=== PATIENT | female | born 1945 | race Caucasian/White ===

== ENCOUNTER 2023-03-11 08:43 | Emergency (ER) | payer OTHER ==
--- OUTSIDE RECORDS SUMMARY | 2023-03-11 08:49 | XMS REPORT | Continuity of Care Document ---
:1945 Author Organization [facility] t Address [address] [facility] [address] [place] [address] Care Team Providers Name Role Phone DR MIESHA GARCIA Primary Care Physician Miesha Garcia Attending Clinician Unavailable [email or web address]_S Attending Clinician Unavailable Namrata Ramirez MA Attending Clinician Unavailable Haylie Gresham MD Attending Clinician Hema Gray MD Attending Clinician Danie Mahan MD Attending Clinician Cy RAMIREZ, Radha Pemberton Attending Clinician [phone] Jesu FRANK, Josselyn Attending Clinician Unavailable Dewayne [facility], Chasidy Attending Clinician Unavailable Merlene Frausto MD Attending Clinician Tanisha [facility] Attending Clinician Unavailable Miranda Hammonds RN Attending Clinician Unavailable Nolan Solis MD Attending Clinician Althea Farr NP Attending Clinician [phone] Marika Dorsey RN Attending Clinician Unavailable Shyla Lizama MA Attending Clinician Unavailable DR ROSALBA HAWKINS Attending Clinician Unavailable MAJO MOLINA Attending Clinician Unavailable CARL CHRIS Attending Clinician Unavailable DR BHASKAR COON Attending Clinician Unavailable JOSEFINA ZHAO Attending Clinician Unavailable DR MIESHA GARCIA Attending Clinician Unavailable BARON ELIZALDE Attending Clinician Unavailable DR KANDICE COLLINS Attending Clinician Unavailable MARTHA REYES Attending Clinician Unavailable Miesha Garcia Admitting Clinician Unavailable GC_[email or web address]_Kadiyala_S Admitting Clinician Unavailable HEMA GRAY Admitting Clinician Unavailable DR ROSALBA HAWKINS Admitting Clinician Unavailable MAJO MOLINA Admitting Clinician Unavailable MONTANA NOEL Admitting Clinician Unavailable DR BHASKAR COON Admitting Clinician Unavailable JOSEFINA ZHAO Admitting Clinician Unavailable DR MIESHA GARCIA Admitting Clinician Unavailable BARON ELIZALDE Admitting Clinician Unavailable DR KANDICE COLLINS Admitting Clinician Unavailable MARTHA REYES Admitting Clinician Unavailable Payers Payer Name Policy Type Policy Number Effective Date Expiration Date Lorraine gamez [facility] [id number] 2014 (MEDICARE 00:00:00 REPLACEMENT/ADVANTA GE - PPO) [id number] 1959 00:00:00 [facility] [id number] 2020 00:00:00 Problems Condition Condition Condition Status Onset Resolution Last Treating Co mments Source Name Details Category Date Date Treatment Clinician Date Cerebrovas Cerebrovas Disease Active M ethodi cular cular 11-02 st accident accident 00:00: Hospit a 00 l Irritable Irritable Disease Active Met [facility]odi colon colon 11-02 st 00:00: Hospita 00 l Nonrheumat Nonrheumat Disease Active Overview : Methodi ic aortic ic aortic 11-02 Formattin s t valve valve 00:00: g of this Hospita insufficie insufficie 00 note l ncy ncy might be different from the original. Noted on TTE 07/2022. Mild. Following w/ cardiolog y for annual TTE Syncope Syncope Disease Active 2021-08 Last Methodi 2-[address] 00:00: t & Plan: Hospita 00 Formattin l g of this note might be different from the original. No cardiac etiology is evident at this time. No arrhythmi as noted on Holter monitor, LV function is also noted to be normal. There is no evidence of coronary artery disease as noted on CAC scan.I will defer neurologi amilcar work-up to her primary physician . Primary Primary Disease Active 2021-08 Last Methodi hypertensi hypertensi 2-[address] on on 00:00: t & Plan: Hospita 00 Formattin l g of this note might be different from the original. Hypertens ion is well controlle d, patient to continue current Rx at this time. 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 00:00: Hosp avani 00 l Hypertensi Hypertensi Problem Active [facility] ve ve [facility] disorder disorder Memori a l (LUF/LI V/SA) Allergies, Adverse Reactions, Alerts Allergy Allergy Status Severity Reaction(s) Onset Inactive Treating Comm ents Source Name Type Date Date Clinician Corticos Propensi Active Other (See 2021-08 Due to Me thodi teroids ty to Comments) 0-[address] (Glucoco adverse 00:00: insuffici Hosp avani rticoids reaction 00 ency l ) s to drug Lamotrig Propensi Active Rash Method i ine ty to 03-07 st adverse 00:00: Hospita reaction 00 l s to drug NO KNOWN Allergy Active [facility] Family History Family Member Diagnosis Comments Start Date Stop Date Source Natural father Lung cancer [facility] Natural father Skin cancer [facility] Natural father Lung cancer [facility] Social History Social Habit Start Date Stop Date Quantity Comments Source Gender identity 2022-10-25 Identifies as Method ist 11:13:49 female gender Hospital (finding) Sexual orientation 2022-10-25 Heterosexual Meth odist 11:13:49 (finding) Hospital History of Social 2022-11-02 2022-11-[address] function 00:00:00 00:00:00 Hospital Tobacco use and 2022-06-15 2022-06-15 Smokeless tobacco Me thodist exposure 00:00:00 00:00:00 non-user Hospital Alcohol intake 2021-05-26 2021-05-26 Ex-drinker [facility] Cate es 00:00:00 00:00:00 (finding) [facility] Tobacco Comment 2021-05-13 2021-05-13 quit 2016 [facility] ammons 00:00:00 00:00:00 [facility] History of tobacco 2007-08-14 Current smoker Me thodist use 00:00:00 [facility] Sex Assigned At [birth year] [facility] 00:00:00 00:00:00 [facility] Smoking Status Start Date Stop Date Source Never smoker [facility] Mem orial (LUF/ADINA/SA) Ex-smoker 2022-06-15 00:00:00 2022-06-15 00:00:00 [facility] Medications Ordered Filled Start Stop Current Ordering Indication Dosage Frequency Signature Comments Components Source Medication Medication Date Date Medication? Clinician (SIG) Name Name aspirin Yes 81mg QD Take 1 Methodi (ECOTRIN) 3-20 tablet (81 st 81 MG 11:01: mg total) Hospita enteric 13 by mouth l coated daily. tablet multivitami Yes 1{tbl} QD Take 1 Me thodi n tablet 3-[address] 11:01: mouth Hospita 13 daily. l clobetasoL 0 Yes [id number] Apply Methodi (TEMOVATE) 3-[id number] 0.05 % 00:00: 3W 3 (three) Hospit a ointment 00 times a l week. clobetasoL 2021-08- No QD Apply Metho di (TEMOVATE) 2-12 03-[address] 0.05 % 00:00: 00:00 nightly. Hospit a ointment 00 :00 l lisinopriL 2021-08 No [id number] 5mg QD Take 1 Methodi (PRINIVIL) 2- 12-06 tablet (5 st 5 mg tablet 00:00: 05:59 mg total) Hospita 00 :00 by mouth l daily. acetaminoph 2021-08 [place] [id number] 1{tbl} Q4H Take 1-2 Methodi en-codeine 1-03 11-[address] (TYLENOL 00:00: 00:00 mouth Hospita WITH 00 :00 every 4 l CODEINE #3) (four) 300-30 mg hours as per tablet needed for moderate pain or severe pain .acute pain. cefdinir 2021-08 No 300mg Q.5D Take 1 Metho di (OMNICEF) 0-24 11-[address] 300 MG 00:00: 00:00 (300 mg Hospita capsule 00 :00 total) by l mouth 2 (two) times a day. Taking for recent UTI x 6 days. Last dose will be 06/15/22 zonisamide Yes TAKE 1 Metho di (ZONEGRAN) 7-[address] 100 MG 00:00: MOUTH IN Hospita capsule 00 THE l MORNING AND 2 CAPSULES AT BEDTIME EACH DAY traZODone Yes TAKE 1 TO Met hodi (DESYREL) 7-[address] 150 MG 00:00: BY MOUTH Hospita tablet 00 ONCE DAILY l AT BEDTIME desvenlafax 0 Yes 100mg QD Take 1 Met hodi ine 7-[address] (PRISTIQ) 00:00: (100 mg Hospi ta 100 MG 24 00 total) by l hr tablet mouth every morning. buPROPion 2022-0 Yes 300mg QD Take 1 Metho di XL 7-[address] (WELLBUTRIN 00:00: (300 mg Hos mirella XL) 300 MG 00 total) by l 24 hr mouth tablet every morning. buPROPion 2020-08 Yes 300mg QD Take [address] (WELLBUTRIN 0-13 mg by [facility] XL) 300 MG 10:57: mouth Medica l 24 hr 43 daily. Center tablet lisinopriL 2020-08 Yes 10mg QD Take [address] (PRINIVIL,Z 0-13 by mouth Luke s ESTRIL) 10 10:57: daily. Medic al MG tablet 43 Center rosuvastati 2020-08 Yes 10mg QD Take [address] n (CRESTOR) 0-13 by mouth Luke s 10 MG 10:57: daily. Medical tablet 43 Center desvenlafax 2020-08 Yes 100mg QD Take [address] ine 0-13 mg by [facility]ukes succinate 10:57: mouth Medical (PRISTIQ) 43 daily. Center 100 MG 24 hr tablet clonazePAM 2020-08 Yes 1mg Take [address] (KlonoPIN) 0-13 by mouth [facility] 1 MG tablet 10:57: as needed M edical 43 for Center Anxiety. temazepam 2020-08 Yes 30mg Take [address] (RESTORIL) 0-13 by mouth [facility] 30 mg 10:57: every Medical capsule 43 night as Center needed for Sleep. 24 HR 24 HR Yes 300mg [facility] bupropion bupropion [facility]ukes hydrochlori hydrochlori M emoria de 300 MG de 300 MG l Extended Extended (LUF/LI Release Release V/SA) Oral Tablet Oral Tablet atorvastati atorvastati Yes 20mg 1xD [facility] n 20 MG n 20 MG [facility] Oral Tablet Oral Tablet M emoria l (LUF/LI V/SA) benazepril benazepril Yes 10mg 1xD [facility] hydrochlori hydrochlori L ukes de 10 MG de 10 MG Memoria Oral Tablet Oral Tablet l (LUF/LI V/SA) Pristiq Pristiq Yes 100mg [address]xD [facility] Extended Extended [facility]ukes Release 24 Release 24 Mem oria hour Tablet hour Tablet l (LUF/LI V/SA) temazepam temazepam Yes 30mg [facility]I S t 30 MG Oral 30 MG Oral Cate es Capsule Capsule Memoria l (LUF/LI V/SA) Zanaflex Zanaflex Yes [address] [facility] Memoria l (LUF/LI V/SA) 24 HR 24 HR Yes 300mg orally [facility] bupropion bupropion every Luke s hydrochlori hydrochlori morning Memoria de 300 MG de 300 MG l Extended Extended (LUF/LI Release Release V/SA) Oral Tablet Oral Tablet atorvastati atorvastati Yes 20mg 1xD orally [facility] n 20 MG n 20 MG daily [facility]ukes Oral Tablet Oral Tablet M emoria l (LUF/LI V/SA) benazepril benazepril Yes 10mg 1xD orally [facility] hydrochlori hydrochlori daily [facility] de 10 MG de 10 MG Memoria Oral Tablet Oral Tablet l (LUF/LI V/SA) Pristiq Pristiq Yes 100mg 1xD orally [facility] Extended Extended daily [facility] Release 24 Release 24 Mem oria hour Tablet hour Tablet l (LUF/LI V/SA) temazepam temazepam Yes 30mg orally [facility] 30 MG Oral 30 MG Oral every day [facility]ukes Capsule Capsule at bedtime Mem oria as needed. l (LUF/LI V/SA) Zanaflex Zanaflex Yes 2mg orally Use C [facility] as [facility] Directed Memoria as needed. l (LUF/LI V/SA) Immunizations Ordered Immunization Filled Immunization Date Status Commen ts Source Name Name FLUZONE HIGH-DOSE PF 2022-05-19 Completed Meth odist 00:00:00 [facility] PFIZER COVID-19 MRNA 2021-07-15 Completed Meth odist VACCINATION 00:00:00 [facility] FLUZONE HIGH-DOSE PF 2021-05-25 Completed Meth odist 00:00:00 [facility] COVID-19 MRNA 2020-12-22 Completed Meth odist VACCINATION 00:00:00 [facility] COVID-19 MRNA 2020-12-06 Completed Meth odist VACCINATION 00:00:00 [facility] influenza virus influenza virus 2016-08-[address] [facility] vaccine, NOS vaccine, NOS 00:00:00 [facility] (LUF/ADINA/SA) pneumococcal pneumococcal 2016-08-[address] Cate es vaccine, NOS vaccine, NOS 00:00:00 [facility] (LUF/ADINA/SA) Influenza, 2016-08-09 Completed [facility] 00:[facility]00 Hospital Pneumococcal, 2016-08-09 Completed [facility] 00:00:00 Hospital Vital Signs Vital Name Observation Time Observation Value Comments Source Height 2022-01-22 11:10:00 160.02 CM Weight 2022-01-22 11:10:00 56.81 KG Height 2021-06-08 11:05:00 160.02 CM Weight 2021-06-08 11:05:00 67.13 KG HEIGHT 2021-05-26 11:05:00 160 cm WEIGHT 2021-05-26 11:05:00 65.772 kg Systolic blood 2022-10-31 15:59:00 142 mm[Hg] [facility] pressure Diastolic blood 2022-10-31 15:59:00 79 mm[Hg] [facility] pressure Heart rate 2022-10-31 15:59:00 87 /min [facility] Body height 2022-10-31 15:59:00 160 cm [facility] Body weight 2022-10-31 15:59:00 60.328 kg [facility] BMI 2022-10-31 15:59:00 23.56 kg/m2 [facility] Body temperature 2022-10-27 16:30:00 36.28 Shraddha [facility] Respiratory rate 2022-10-27 16:30:00 17 /min [facility] Oxygen saturation in 2022-10-27 16:30:00 98 /min [facility] Arterial blood by Pulse oximetry Body Temperature 2022-01-22 12:58:00 98.2 [degF] [facility] (LUF/ADINA/SA) Heart Rate 2022-01-22 12:58:00 72 /min [facility] (LUF/ADINA/SA) Pulse Rate 2022-01-22 12:58:00 72 /min [facility] (F/ADINA/SA) Respiratory Rate 2022-01-22 12:58:00 20 /min [facility] (F/ADINA/SA) O2% BldC Oximetry 2022-01-22 12:58:00 99 % [facility] (F/ADINA/SA) BP Systolic 2022-01-22 12:58:00 129 mm[Hg] [facility] (LUF/ADINA/SA) BP Diastolic 2022-01-22 12:58:00 61 mm[Hg] [facility] (LUF/ADINA/SA) Height 2022-01-22 11:10:00 63 [in_i] [facility] (LUF/ADINA/SA) Weight 2022-01-22 11:10:00 56.81 kg [facility] (F/ADINA/SA) BMI (Body Mass 2022-01-22 11:10:00 22.1 kg/m2 [facility] Index) [facility] (LUF/ADINA/SA) Body Temperature 2021-06-11 16:42:00 97.1 [degF] [facility] (F/ADINA/SA) Pulse Rate 2021-06-11 16:04:00 67 /min [facility] (F/ADINA/SA) Respiratory Rate 2021-06-11 16:04:00 27 /min [facility] (F/ADINA/SA) O2% BldC Oximetry 2021-06-11 16:04:00 95 % [facility] (F/ADINA/SA) BP Systolic 2021-06-11 16:04:00 153 mm[Hg] [facility] (F/ADINA/SA) BP Diastolic 2021-06-11 16:04:00 54 mm[Hg] [facility] (F/ADINA/SA) Height 2021-06-08 11:05:00 63 [in_i] [facility] (F/ADINA/SA) Weight 2021-06-08 11:05:00 148 [lb_av] [facility] (LUF/ADINA/SA) BMI (Body Mass 2021-06-08 11:05:00 26.2 kg/m2 [facility] Index) [facility] (F/ADINA/SA) Procedures Procedure Date / Time Performing Clinician Source Performed FERRITIN LEVEL 2022-10-25 13:05:00 Rad[facility] Ben[facility] [place] CBC WITH PLATELET AND 2022-10-25 13:05:00 Radha Benoit [facility] [place] CBC WITH PLATELET AND 2022-10-05 17:59:00 [facility] DIFFERENTIAL FERRITIN LEVEL 2022-10-05 17:59:00 [facility] CT CARDIAC CALCIUM SCORE 2022-08-23 22:27:43 [facility] US CAROTID DUPLEX 2022-08-10 20:53:00 [facility] BILATERAL TTE COMPLETE, WO CONTRAST, 2022-08-10 20:49:00 [facility] W DOPPLER ([id number]) CBC WITH PLATELET AND 2022-08-03 17:51:00 [facility] DIFFERENTIAL CBC WITH PLATELET AND 2022-07-13 18:11:00 [facility] DIFFERENTIAL CBC WITH PLATELET AND 2022-06-21 18:09:00 [facility] DIFFERENTIAL FERRITIN LEVEL 2022-06-21 18:09:00 [facility] SURGICAL PATHOLOGY REQUEST 2022-06-16 17:05:00 [facility] [place] AN ELECTIVE 2022-06-16 16:42:00 [facility] BIOPSY, VULVA OR PERINEUM 2022-06-16 16:36:00 [facility] ABO AND RH CONFIRMATION BY 2022-06-16 15:26:00 [facility] PROTOCOL XR CHEST 2 VW 2022-06-15 14:32:50 [facility] jarrod COMPREHENSIVE METABOLIC 2022-06-15 14:16:00 [facility] PANEL TYPE AND SCREEN 2022-06-15 14:16:00 Malik Hampton PARTIAL THROMBOPLASTIN 2022-06-15 14:16:00 Malik Hampton [facility] Hospital TIME (PTT) Matthew PROTHROMBIN TIME WITH INR 2022-06-15 14:16:00 Malik Hampton [facility] Christophdarrius HEMOGLOBIN A1C 2022-06-15 14:16:00 Malik Hampton CBC WITH PLATELET AND 2022-06-15 14:16:00 [facility] DIFFERENTIAL Christopher ESTIMATED GFR 2022-06-15 14:16:00 [facility] spital ECG PRE/POST OP 2022-06-15 13:49:57 Malik Hampton [facility] spital Christopher TSH WITH REFLEX TO FREE T4 2022-05-31 19:39:00 [facility] SURGICAL PATHOLOGY REQUEST 2022-05-30 13:10:00 [facility] FERRITIN LEVEL 2022-05-24 16:59:00 [facility] spital TOTAL IRON BINDING 2022-05-24 16:59:00 [facility] CAPACITY VITAMIN B12 AND FOLATE 2022-05-24 16:59:00 [facility] CREATININE LEVEL 2022-05-24 16:57:00 [facility] ospital CBC WITH PLATELET AND 2022-05-19 19:34:00 [facility] DIFFERENTIAL COMPREHENSIVE METABOLIC 2022-05-19 19:34:00 [facility] PANEL HEMORRHOIDECTOMY 2021-06-11 14:10:00 [facility] ([facility]/ADINA/SA) COLONOSCOPY 2021-06-11 13:36:00 [facility] ([facility]/ADINA/SA) [id number] COLONOSCOPY W/BIOPSY 2021-06-11 00:00:00 [facility] SINGLE/MULTIP [facility] ([facility]/ADINA/SA) [id number] HEMORRHOIDECTOMY INT 2021-06-11 00:00:00 [facility] & XTRNL 2/> C [facility] ([facility]/ADINA/SA) Hysterectomy [facility] ([facility]/ADINA/SA) Appendectomy [facility] ([facility]/ADINA/SA) Tonsillectomy and [facility] adenoidectomy [facility] ([facility]/ADINA/SA) Lumpectomy of left breast [facility] ([facility]/ADINA/SA) Excision of mass [facility] ([facility]/ADINA/SA) Bilateral extraction of [facility] uk cataracts [facility] ([facility]/SA) EXCISION OF ALFARO'S [facility] s NEUROMA [facility] ([facility]/SA) Cosmetic surgery [facility] ([facility]/) Plan of Care Planned Activity Planned Date Details Comments Source Future Scheduled 2023-04-14 Influenza Vaccine (#1) [facility] 00:00:00 [code = Influenza Medical Ce nter Vaccine (#1)] Future Scheduled 2023-01-30 65+ PNEUMOCOCCAL [facility] Test 20:07:49 VACCINE (1 - PCV) [code = 65+ PNEUMOCOCCAL VACCINE (1 - PCV)] Future Scheduled 2023-01-30 Hepatitis C screening [facility] Hospital Test 20:07:49 (procedure) [code = [id number]] Future Scheduled 2023-01-30 SHINGLES VACCINES (1 Met [facility] Hospital Test 20:07:49 of 2) [code = SHINGLES VACCINES (1 of 2)] Future Scheduled 2023-01-30 COVID-19 VACCINE (4 - [facility] Hospital Test 20:07:49 Pfizer series) [code = COVID-19 VACCINE (4 - Pfizer series)] Future Scheduled 2023-01-30 INFLUENZA VACCINE Method ist Hospital Test 20:07:49 [code = INFLUENZA VACCINE] Future Scheduled 2022-08-[address] [facility] Test 00:00:00 (12+) [code = Medical Center DEPRESSION SCREENING (12+)] Future Scheduled 2022-08-14 FALLS RISK SCREENING [facility] Test 00:00:00 [code = FALLS RISK Medical C enter SCREENING] Future Scheduled 2008 PNEUMOCOCCAL 65+ YRS [facility] Test 00:00:00 (1 - PCV) [code = Medical Ce nter PNEUMOCOCCAL 65+ YRS (1 - PCV)] Future Scheduled 1993 SHINGLES VACCINES ([address] [facility] Test 00:00:00 of 2) [code = SHINGLES Medic al Center VACCINES (1 of 2)] Future Scheduled 1962 DTAP/TDAP/TD VACCINES [facility] Test 00:00:00 (1 - Tdap) [code = Medical C enter DTAP/TDAP/TD VACCINES (1 - Tdap)] Future Scheduled 1961 HEPATITIS C SCREENING [facility] Test 00:00:00 [code = HEPATITIS C Medical Center SCREENING] Future Scheduled [address] [facility] Test 00:00:00 Counseling and Medical Cente r Screening (12+) [code = Tobacco Cessation Counseling and Screening (12+)] Future Scheduled 1943 COVID-19 VACCINE (#1) [facility] Test 00:00:00 [code = COVID-[address] VACCINE (#1)] Future Scheduled 1945 DXA SCAN [code = DXA [facility] Test 00:00:00 SCAN] Medical Center Encounters Start End Encounter Admission Attending Care Care Encounter Source Date/Time Date/Time Type Type Clinicians Facility Department ID 2021-09-08 [facility] [id number] Common 14:09:52 Miesha 1108 [facility] 2021-09-08 [facility] [id number] Common 13:49:03 Miesha 0914 [facility] 2021-09-08 [facility] [id number] Common 13:14:16 Miesha 0614 [facility] 2023-03-07 2023-03-07 Outpatient GC_GCBZW_Ka PRIV PRIV [id number] [facility] 00:00:00 00:00:00 diyala_S [id number] Medic al 2023-02-23 2023-02-23 Outpatient GC_GCBZW_Ka PRIV PRIV [id number] [facility] 00:00:00 00:00:00 diyala_S [id number] Medic al 2023-01-16 2023-01-16 Travel 1.2.840.1 [id number] Methodi 00:00:00 00:00:[address] 3.430.2.7 0.2.7.3.698 Ho spita .3.674622 084.8 l .8 2022-11-17 2022-11-17 Namrata Cage 1.2.840.1 [id number] Methodi 00:00:00 00:00:[address] 3.430.2.7 Hospit a .3.239028 l .8 2022-11-17 2022-11-17 Telephone Mp, 1.2.840.1 [id number] Methodi 00:00:00 00:00:[address] 3.430.2.7 Hospit a .3.514929 l .8 2022-10-31 2022-10-31 Office Abbey, 1.2.840.1 [id number] Methodi 11:00:00 11:26:08 Visit Hema 92665.1.[address] 3.430.2.7 Hospit a .3.466377 l .8 2022-10-31 2022-10-31 Outpatient [facility] [id number] [place] 00:00:00 00:00:[address] 2022-10-31 2022-10-31 Travel 1.2.840.1 [id number] Methodi 00:00:00 00:00:[address] 3.430.2.7 0.2.7.3.698 Ho spita .3.351580 084.8 l .8 2022-10-27 2022-10-27 Office Danie Mahan 1.2.840.1 [id number] Methodi 11:00:00 12:03:05 Visit Radha Benoit 29760.1.[address] 3.430.2.7 Hospit a .3.987963 l .8 2022-10-27 2022-10-27 Infusion Leobardo, 1.2.840.1 [id number] Methodi 11:30:00 11:47:57 Dan[address] Vengu [address]46.1.[address] 3.430.2.7 Hospit a .3.439044 l .8 2022-10-27 2022-10-27 Outpatient [facility] [id number] [place] 00:00:00 00:00:00 DANIE [address] 2022-10-27 2022-10-27 Outpatient [facility] [id number] [place] 00:00:00 00:00:00 DANIE [address] 2022-10-27 2022-10-27 Travel 1.2.840.1 [id number] [id number] Methodi 00:00:00 00:00:[address] 3.430.2.7 0.2.7.3.698 Ho spita .3.266865 084.8 l .8 2022-10-25 2022-10-25 Lab [facility] Health [facility], 1.2.840.1 [id number] 2099 [id number] Methodi 08:10:00 08:15:00 [address]76.1.[address] 3.430.2.7 Hospit a .3.620845 l .8 2022-10-25 2022-10-25 Outpatient [facility] 43623 23661 [place] 00:00:00 00:00:00 DANIE [address] 2022-10-25 2022-10-25 Travel 1.2.840.1 1.2.383.867 8624 568891 Methodi 00:00:00 00:00:[address] 3.430.2.7 0.2.7.3.698 Ho spita .3.304930 084.8 l .8 2022-10-19 2022-10-19 Telephone [facility], 1.2.840.1 [id number] 29922 77281 Methodi 00:00:00 00:00:[address] 3.430.2.7 Hospit a .3.879819 l .8 2022-10-13 2022-10-13 Orders Jesu, 1.2.840.1 [id number] 8811 Methodi 00:00:00 00:00:00 Only Josselyn 78819.1.[address] 3.430.2.7 Hospit a .3.980268 l .8 2022-10-05 2022-10-05 Infusion Ramfranki, 1.2.840.1 [id number] 966 [id number] Methodi 12:00:00 12:16:22 [address]man 20873.[address] 3.430.2.7 Hospit a .3.590503 l .8 2022-10-05 2022-10-05 Outpatient [facility] 17335 24248 [place] 00:00:00 00:00:00 DANIE [address] 2022-10-05 2022-10-05 Travel 1.2.840.1 1.2.041.716 9603 806367 Methodi 00:00:00 00:00:[address] 3.430.2.7 0.2.7.3.698 Ho spita .3.954681 084.8 l .8 2022-09-07 2022-09-07 Patient Dewayne, 1.2.840.1 [id number] 6845 Methodi 00:00:00 00:00:00 Outreach Chasidy 54454.1.[address] 3.430.2.7 Hospit a .3.499733 l .8 2022-08-30 2022-08-30 Office Merlene Frausto 1.2.840.1 [id number] 337 [id number] Methodi 13:15:00 13:56:[address] 3.430.2.7 Hospit a .3.365248 l .8 2022-08-30 2022-08-30 Outpatient MERLENE FRAUSTO [facility] 2100 058692 [place] 00:00:00 00:00:[address] 2022-08-30 2022-08-30 Travel 1.2.840.1 1.2.633.479 9743 218169 Methodi 00:00:00 00:00:[address] 3.430.2.7 0.2.7.3.698 Ho spita .3.141069 084.8 l .8 2022-08-23 2022-08-23 [facility] Merlene Frausto 1.2.840.1 [id number] 21 [id number] Methodi 14:57:45 23:59:[address] 3.430.2.7 Hospit a .3.031664 l .8 2022-08-23 2022-08-23 Outpatient MERLENE FRAUSTO [facility] 2100 [id number] [place] 00:00:00 00:00:[address] 2022-08-23 2022-08-23 Travel 1.2.840.1 1.2.016.302 7447 164920 Methodi 00:00:00 00:00:[address] 3.430.2.7 0.2.7.3.698 Ho spita .3.745870 084.8 l .8 2022-08-10 2022-08-10 Infusion [facility], 1.2.840.1 [id number] 219 [id number] Methodi 12:00:00 13:53:[address] 79927.1.[address] 3.430.2.7 Hospit a .3.929855 l .8 2022-08-10 2022-08-10 Outpatient [facility] 58041 28247 [place] 00:00:00 00:00:00 DANIE [address] 2022-08-10 2022-08-10 Outpatient MERLENE FRAUSTO [facility] 2100 [id number] [place] 00:00:00 00:00:[address] 2022-08-10 2022-08-10 Outpatient MERLENE FRAUSTO [facility] 2100 [id number] [place] 00:00:00 00:00:[address] 2022-08-10 2022-08-10 Travel 1.2.840.1 1.2.610.232 7017 349955 Methodi 00:00:00 00:00:[address] 3.430.2.7 0.2.7.3.698 Ho spita .3.833603 084.8 l .8 2022-08-03 2022-08-03 Nurse Only Leobardo, 1.2.840.1 [id number] 2 [id number] Methodi 12:00:00 13:50:32 [address] Beckman 46103.1.[address] 3.430.2.7 Hospit a .3.890583 l .8 2022-08-03 2022-08-03 Outpatient LEOBARDO [facility] 03947 77700 [place] 00:00:00 00:00:00 DANIE [address] 2022-08-03 2022-08-03 Orders Tanisha, 1.2.840.1 [id number] 7378 Methodi 00:00:00 00:00:00 Only Lakisha 81342.1.[address] 3.430.2.7 Hospit a .3.727394 l .8 2022-08-03 2022-08-03 Travel 1.2.840.1 1.2.114.830 7240 710324 Methodi 00:00:00 00:00:[address] 3.430.2.7 0.2.7.3.698 Ho spita .3.827247 084.8 l .8 2022-07-25 2022-07-25 Office Abbey, 1.2.840.1 [id number] 056522 2433 Methodi 10:30:00 10:50:17 Visit Hema 69416.1.[address] 3.430.2.7 Hospit a .3.596837 l .8 2022-07-25 2022-07-25 [facility] [id number] 777 [place] 00:00:00 00:00:00 HEMA [address] 2022-07-25 2022-07-25 Travel 1.2.840.1 1.2.095.101 0123 166544 Methodi 00:00:00 00:00:[address] 3.430.2.7 0.2.7.3.698 Ho spita .3.381825 084.8 l .8 2022-07-18 2022-07-18 Office Haylie Gresham 1.2.840.1 [id number] 3 [id number] Methodi 12:00:00 12:46:47 Visit Merlene Frausto 90585.1.1 [address]82 [address] t 3.430.2.7 Hospit a .3.326594 l .8 2022-07-18 2022-07-18 Outpatient MP, [facility] [id number] 840 [place] 00:00:00 00:00:00 HAYLIE Aguilera[address] [facility] [address] 2022-07-18 2022-07-18 Travel 1.2.840.1 1.2.567.331 5744 146272 Methodi 00:00:00 00:00:[address] 3.430.2.7 0.2.7.3.698 Ho spita .3.521237 084.8 l .8 2022-07-13 2022-07-13 Nurse Only Leobardo, 1.2.840.1 [id number] 2 [id number] Methodi 12:00:00 12:39:30 Daniejunie Larashwetha 31018.1.[address] 3.430.2.7 Hospit a .3.842418 l .8 2022-07-13 2022-07-13 Outpatient [facility] 90127 33317 [place] 00:00:00 00:00:00 DANIE [address] 2022-07-13 2022-07-13 Orders Garay, 1.2.840.1 [id number] 833171 7240 Methodi 00:00:00 00:00:00 Only Lakisha 49320.1.[address] 3.430.2.7 Hospit a .3.576323 l .8 2022-07-13 2022-07-13 Travel 1.2.840.1 1.2.243.388 7056 475043 Methodi 00:00:00 00:00:[address] 3.430.2.7 0.2.7.3.698 Ho spita .3.204736 084.8 l .8 2022-06-28 2022-06-28 Orders Hammonds, 1.2.840.1 [id number] 266972 0554 Methodi 00:00:00 00:00:00 Only Miranda 56347.1.[address] 3.430.2.7 Hospit a .3.537533 l .8 2022-06-27 2022-06-27 Office Abbey, 1.2.840.1 [id number] 808732 4385 Methodi 10:30:00 13:07:59 Visit Hema 86831.1.[address] 3.430.2.7 Hospit a .3.545228 l .8 2022-06-27 2022-06-27 Outpatient [facility] [id number] [address] [place] [address] 00:00:00 00:00:[address]EMA [address] 2022-06-27 2022-06-27 Travel 1.2.840.1 1.2.292.493 3144 413730 Methodi 00:00:00 00:00:[address] 3.430.2.7 0.2.7.3.698 Ho spita .3.641854 084.8 l .8 2022-06-21 2022-06-21 Nurse Only Leobardo, 1.2.840.1 [id number] 2 [id number] Methodi 12:00:00 12:52:09 [address]32.1.[address] 3.430.2.7 Hospit a .3.152128 l .8 2022-06-21 2022-06-21 Consult Leobardo, 1.2.840.1 [id number] 2100 937447 Methodi 11:30:00 11:48:[address] 3.430.2.7 Hospit a .3.886538 l .8 2022-06-21 2022-06-21 Outpatient [facility] 80746 59407 [place] 00:00:00 00:00:00 DANIE [address] 2022-06-21 2022-06-21 Outpatient [facility] 48477 38513 [place] 00:00:00 00:00:00 DANIE [address] 2022-06-21 2022-06-21 Orders Garay, 1.2.840.1 [id number] 488024 2622 Methodi 00:00:00 00:00:00 Only Lakisha 90530.1.[address] 3.430.2.7 Hospit a .3.243944 l .8 2022-06-21 2022-06-21 Travel 1.2.840.1 1.2.684.673 6249 172309 Methodi 00:00:00 00:00:[address] 3.430.2.7 0.2.7.3.698 Ho spita .3.726833 084.8 l .8 2022-06-16 2022-06-16 [facility], 1.2.840.1 [id number] 11935 35889 Methodi 09:10:00 13:38:00 Encounter Hema 51656.1.[address] 3.430.2.7 Hospit a .3.057838 l .8 2022-06-16 2022-06-16 Surgery [facility], 1.2.840.1 [id number] 243300 4117 Methodi 11:30:00 13:00:[address] 3.430.2.7 Hospit a .3.699384 l .8 2022-06-16 2022-06-16 Anesthesia Nolan Solis 1.2.840.1 1 [id number] [id number] Methodi 11:37:00 12:26:00 Event Althea Farr 09628.1.[address] 3.430.2.7 Hospit a .3.711739 l .8 2022-06-16 2022-06-16 Outpatient [facility] 211 [id number] 018 [place] 00:00:00 00:00:00 HEMA [address] 2022-06-16 2022-06-16 Travel 1.2.840.1 1.2.479.254 5749 156071 Methodi 00:00:00 00:00:[address] 3.430.2.7 0.2.7.3.698 spita .3.099807 084.8 l .8 2022-06-16 2022-06-16 [facility], 1.2.840.1 [id number] 2099 021350 Methodi 00:00:00 00:00:[address] 3.430.2.7 Hospit a .3.174220 l .8 2022-06-15 2022-06-15 [facility], 1.2.840.1 [id number] 55808 83775 Methodi 09:21:14 23:59:00 Encounter Hema 86413.1.[address] 3.430.2.7 Hospit a .3.851444 l .8 2022-06-15 2022-06-15 Pre-Admiss [facility], 1.2.840.1 [id number] 593 9979329 Methodi 08:00:00 10:35:34 ion Hema 54096.1.[address] Testing 3.430.2.7 Hospit a .3.993709 l .8 2022-06-15 2022-06-15 Outpatient [facility] [id number] 696 [place] 00:00:00 00:00:00 HEMA [address] 2022-06-15 2022-06-15 Outpatient [facility] [id number] 868 [place] 00:00:00 00:00:00 HEMA [address] 2022-06-14 2022-06-14 [facility], 1.2.840.1 [id number] 840956 7693 Methodi 00:00:00 00:00:00 Only Lakisha 66392.1.[address] 3.430.2.7 Hospit a .3.171621 l .8 2022-06-14 2022-06-14 Telephone Willian, 1.2.840.1 [id number] 21 [id number] Methodi 00:00:00 00:00:00 Marika L [address]18.1.[address] 3.430.2.7 Hospit a .3.966265 l .8 2022-06-10 2022-06-10 Telephone Willian, 1.2.840.1 [id number] 21 [id number] Methodi 00:00:00 00:00:00 Marika L [address].1.[address] 3.430.2.7 Hospit a .3.324263 l .8 2022-06-02 2022-06-02 Prep for Nasra, 1.2.840.1 [id number] 47332 67617 Methodi 00:00:00 00:00:00 Surgery Miranda 02831.1.[address] 3.430.2.7 Hospit a .3.908978 l .8 2022-06-02 2022-06-02 Telephone Abbey, 1.2.840.1 [id number] 2100 580368 Methodi 00:00:00 00:00:[address] 3.430.2.7 Hospit a .3.997343 l .8 2022-06-02 2022-06-02 Telephone Nasra, 1.2.840.1 [id number] 2100 053736 Methodi 00:00:00 00:00:[address] 3.430.2.7 Hospit a .3.991725 l .8 2022-05-31 2022-05-31 Office Mp, 1.2.840.1 50641299 [id number] 532 Methodi 14:15:00 14:49:04 Visit Zrajwindera 32507.1.[address] 3.430.2.7 Hospit a .3.519047 l .8 2022-05-31 2022-05-31 Outpatient MP, [facility] [id number] 532 [place] 00:00:00 00:00:00 HAYLIE [address] 2022-05-30 2022-05-30 Lab Zand, 1.2.840.1 [id number] 113487 8482 Methodi 17:20:00 17:25:[address] 3.430.2.7 Hospit a .3.894481 l .8 2022-05-30 2022-05-30 Office nd, 1.2.840.1 [id number] 733469 5347 Methodi 14:00:00 14:51:02 Visit Hema 85179.1.[address] 3.430.2.7 Hospit a .3.669832 l .8 2022-05-30 2022-05-30 Outpatient [facility], [facility] [id number] 752 [place] 00:00:00 00:00:00 HEMA [address] 2022-05-30 2022-05-30 Outpatient [facility] [id number] 175 [place] 00:00:00 00:00:00 HEMA [address] 2022-05-30 2022-05-30 Orders Hammonds, 1.2.840.1 [id number] 642341 3726 Methodi 00:00:00 00:00:00 Only Miranda 93901.1.[address] 3.430.2.7 Hospit a .3.136133 l .8 2022-05-30 2022-05-30 Travel 1.2.840.1 1.2.265.943 6751 346849 Methodi 00:00:00 00:00:[address] 3.430.2.7 0.2.7.3.698 Ho spita .3.355356 084.8 l .8 2022-05-26 2022-05-26 Travel 1.2.840.1 1.2.327.350 4743 267171 Methodi 00:00:00 00:00:[address] 3.430.2.7 0.2.7.3.698 Ho spita .3.338367 084.8 l .8 2022-05-25 2022-05-25 Telephone Dl, 1.2.840.1 56987593 2100 460138 Methodi 00:00:00 00:00:[address] 3.430.2.7 Hospit a .3.981754 l .8 2022-05-20 2022-05-20 Orders [facility], 1.2.840.1 [id number] 051 Methodi 00:00:00 00:00:00 Only Haylie 58391.1.[address] 3.430.2.7 Hospit a .3.179089 l .8 2022-05-19 2022-05-19 Office [facility], 1.2.840.1 [id number] 708 Methodi 14:00:00 14:53:51 Visit Haylie 64643.1.[address] 3.430.2.7 Hospit a .3.372297 l .8 2022-05-19 2022-05-19 Formerly named [facility], [facility] [id number] 708 [place] 00:00:00 00:00:00 ZFAROOQMERA [address] 2022-05-19 2022-05-19 Travel 1.2.840.1 1.2.464.912 5483 207620 Methodi 00:00:00 00:00:[address] 3.430.2.7 0.2.7.3.698 Ho spita .3.483336 084.8 l .8 2022-05-16 2022-05-16 Travel 1.2.840.1 1.2.468.471 3195 927753 Methodi 00:00:00 00:00:[address] 3.430.2.7 0.2.7.3.698 Ho spita .3.264388 084.8 l .8 2022-03-24 2022-03-24 Travel 1.2.840.1 1.2.898.494 1167 999562 Methodi 00:00:00 00:00:[address] 3.430.2.7 0.2.7.3.698 Ho spita .3.856323 084.8 l .8 2022-01-22 2022-01-22 Inpatient 1 ROSS, [facility] [id number] [address] 10:44:00 14:00:00 ROSALBA JUAREZ L ukes N, [address] [place], [place]LUF[place] [address] 2022-01-22 2022-01-22 Inpatient [facility] [id number] -[id number] [facility]00 [id number]- [facility], [id number] 7bee0f l [place], [place] [address] 2022-01-19 2022-01-19 Outpatient 3 TRACY MAJO [facility] OPD [address] [facility] [address] 09:00:00 09:00:00 [facility]F/[facility] V/SA) 2022-01-05 2022-01-05 Outpatient DENIA CHRIS [facility] [id number] [address] 00:00:00 00:00:00 [facility] 2021-06-11 2021-06-11 SECOND O MICK, [facility] [id number] [facility] 07:03:00 16:47:00 DEGREE JONATHAN JUAREZ L ukes HEMORRHOID N, [address] [place], (LUF/[place] [address] 2021-06-11 2021-06-11 Inpatient [facility] [id number] -[address] 00:00:00 00:00:00 [facility] [id number]- 8 [facility], [id number] [id number] [place], (LUF/[place] [address] 2021-06-11 2021-06-11 Inpatient [facility] [id number] -[address] 00:00:00 00:00:00 [facility] [id number]- 8 [facility] N, [id number] [id number] l [place], (LUF/[place] [address] 2021-05-26 2021-05-26 Outpatient [facility] [id number] 10:52:48 11:29:12 [facility] 2021-05-19 2021-05-19 Outpatient [facility] [id number] [address] 00:00:00 00:00:00 [facility] 2021-01-27 2021-01-27 SPINAL 3 SUNKAVALLY, [facility] [id number] [address] 10:42:00 23:59:00 STENOSIS BHASKAR [facility] LUMBAR N, [address] [facility] [address] [place], (LUF/[place] [address] 2021-01-27 2021-01-27 Inpatient [facility] [id number] -[id number] 00:00:00 00:00:00 [facility] [id number] [facility] N, [id number] [id number] l [place], (LUF/[place] [address] 2021-01-27 2021-01-27 Inpatient [facility] [id number] -c [facility] 00:[facility] 00:00:00 [facility] [id number]- a jaime N, [facility]7 [id number] [address] [id number] l [place], (LUF/[place] [address] 2021-01-08 2021-01-08 SPINAL 3 SUNKAVALLY, [facility] [id number] [address] 09:33:00 23:59:00 [facility], [address] [facility] [address] [place], (LUF/[place] [address] 2021-01-08 2021-01-08 Inpatient [facility] [id number] -b [facility] 00:[facility] 00:00:00 BENJAMINShailesh ALEXANDERJUAREZ [id number]- 9 [facility], [id number] [id number] l [place], (LUF/[place] [address] 2021-01-08 2021-01-08 Inpatient [facility] [id number] -[address] 00:00[facility]00 00[facility]00[facility]00 [facility] [id number]- [id number], [id number] [id number] l [place], (LUF/[place] [address] 2020-10-28 2020-10-28 Outpatient 3 PRETTY ZHAO OPD [id number] [address] 12:45:00 12:45:00 JOSEFINA [facility] V/SA) 2019-10-10 2019-10-10 [facility] [id number] 13:53:00 23:59:00 SINGLE MIESHA Gray ukes RENAL CYST N, [address] [place], (LUF/[place] [address] 2018-07-10 2018-07-10 Inpatient 3 KARINA [facility] [id number] [address] 12:52:00 23:59:00 KANDICE swartzes N, [address] [place], (LUF/[place] [address] 2018-06-25 2018-06-25 [facility] [address] 11:27:00 23:59:00 MIESHA swartzes N, [address] [place], (LUF/[place] [address] Results Test Description Test Time Test Comments Results Result Comments Source ECG Pre/Post Op 2022-06-18 18:57:58 Test Item Value Reference Range Interpretation Comme nts Ventricular rate (test code = 253) 72 Atrial rate (test code = 255) 72 [place] interval (test code = 266) 164 QRSD interval (test code = 260) 90 QT interval (test code = 264) 392 QTC interval (test code = 265) 429 P axis 1 (test code = 267) 52 QRS axis 1 (test code = 268) 48 T wave axis (test code = 270) 73 EKG impression (test code = 273) Normal sinus rhythm-Normal ECG-No previous [facility]s available[facility] [id number] 17:09:16 Test Item Value Reference Range Interpretation Comments Case number (test code = [id number]) Surgical pathology See link below for report (test code = PDF Lab Report 2255) Result status (test code This is Final Report = [id number]) for [id number] [facility] reflex to [id number] 08:07:00 Test Item Value Reference Range Interpretation Comments TSH (test code 3.840 See_Comment [Automated m essage] = 93478-2) The system [employer] generated this result transmit jamin reference range : 0.450 - 4.500 uIU/mL. The reference range was not used to interpret this result as normal/abnormal . MAC (test code Performed at: - = MAC) [facility] [id number] Director: Masood Marroquin MD, Phone: [phone] [facility] [id number] 08:08:00 Test Item Value Reference Range Interpretation Comments Iron binding capacity 259 ug/dL 250-450 (test code = 2500-7) Unsaturated iron 193 ug/dL 118-369 binding capacity (test code = 2501-5) Iron level (test code = 66 ug/dL 27-139 2498-4) Iron saturation (test 25 % 15-55 code = 2502-3) MAC (test code = MAC) Performed at: [address] [id number] Director: Masood Marroquin MD, Phone: [phone] [facility] Hospital[facility]itamin B12 and [id number] 08:08:00 Test Item Value Reference Range Interpretation Comments Vitamin B12 611 pg/mL 232-1245 (test code = 2132-9) Folate (test >20.0 >=3.0 A serum folate code = 2284-8) concentration of less than 3.1 ng/mL isconsidered to represent clini amilcar deficiency. MAC (test code Performed at: - = MAC) [facility] [address] [id number] Director: Masood Marroquin MD, Phone: [phone] [facility] Hospital[facility] [id number] 07:07:00 Test Item Value Reference Range Interpretation Comments Creatinine (test code = 1.38 mg/dL 0.57-1.00 H 2160-0) eGFR (test code = 8257) 39 mL/min/1.73 >=59 L MAC (test code = MAC) Performed at: [facility] [address] [id number] Director: Masood Marroquin MD, Phone: [phone] Lab Interpretation (test Abnormal code = 73282-8) [facility] CE[facility] [id number] 14:48:00 Test Item Value Reference Range Interpretation Comments COVID-19, Real Time PCR-ALICE NEGATIVE Negative AA (test code = COVID) FIRST TEST: (test code = U COVO.FT) EMPLOYEE IN HEALTHCARE: (test N code = COVO.EMP) SYMPTOMATIC DEFINED BY CDC: N (test code = COVO.SYMPH) HOSPITALIZED: (test code = N COVO.HOSP) ADMITTED TO ICU: (test code = N COVO.ICU) RESIDENT IN CONGREGATE CARE N (test code = COVO.NEDRA) : (test code = Not COVO.PREG) IN-HOUSE [id number] 11:47:00 Test Item Value Reference Range Interpretation Comments CPK (test code = CPK) 26 U/L 30-135 L STLMLHIGH SENSITIVITY [id number] 11:46:00 Test Item Value Reference Range Interpretation Comments HIGH SENSITIVITY 71.1 pg/ml 0.0-34.0 H CHANGE IN T EST METHOD TROPONIN (test code = Nhi membreno in the test TNIH) method for Trop onin has gone into e ffect. We now test for High Sensitivity Tro ponin. The new units o f measure are pg/ mL, and the new 99t h percentile cuto ff of 34 pg/mL for FE MALE and 53 pg/mL fo r MALE. New criti amilcar values will be called for any troponi n greater than or equal to 500 pg/mL. [id number] 11:43:00 Test Item Value Reference Range Interpretation Comments Glucose (test code 119 mg/dl 75-110 H = GLU) BUN (test code = 23.0 mg/dl 6.0-17.0 H BUN) Creatinine (test 1.4 mg/dl 0.4-1.2 H code = CREA) Sodium (test code = 143 mmol/l 137-145 NA) Potassium (test 3.6 mmol/l 3.5-5.0 code = K) Chloride (test code 111 mmol/l 98-107 H = CL) CO2 (test code = 27 mmol/l 22-30 CO2) Calcium (test code 9.0 mg/dl 8.4-10.2 = CALC) T Protein (test 6.5 gm/dl 5.1-8.7 code = TP) Albumin (test code 3.3 gm/dl 3.5-4.6 L = ALB) A/G Ratio (test 1.0 % 1.1-2.2 L code = AGRAT) AST (SGOT) (test 17 U/L 11-36 code = AST) ALT (SGPT) (test 19 U/L 11-40 code = ALT) Alkaline Phos (test 65 U/L 47-114 code = ALKP) Total Bilirubin 0.1 mg/dl 0.2-1.2 L (test code = TBIL) Globulin (test code 3.2 gm/dl 2.3-3.5 = GLOBU) Calcium, Corrected 9.6 mg/dl 8.4-10.2 Various f ormulas exist (test code = for corrected s kilo CALCCORR) calcium results , each yielding differ ent values. This co rrected result was base d on the formula: Co rrected Calcium = Serum Calcium + [0.8 * ( 4 - SerumAlbumin)] EGFR if 47 Congolese (test code mL/min/1.73m\\ = EGFRAA) S\\2 EGFR if Non- 39 Estimate d Glomerular [place]olese (test code mL/min/1.73m\\ Filtrat ion Rate (eGFR) = EGFRNA) S\\2 Reference Inter vals Decision Points for 18 years and older and average body ma ss: >= 60 Does not exc lude kidney disease. 30 - 59 Suggests mod erate chronic kidney disease and indicates t he need for further investigation including asses sment of proteinuria and cardiovascular factors. < 30 U sually indicates a nee d for referral for assessment and management of c hronic kidney failure. [id number] 11:40:00 Test Item Value Reference Range Interpretation Comments aPTT (test code = PTT) 25.3 seconds 23.9-30.7 STLMLPT AND [id number] 11:40:00 Test Item Value Reference Range Interpretation Comments Protime (test code 10.1 seconds 9.5-12.1 = PT) INR (test code = 1.0 0.9-1.1 INR results are INR) intended ONLY t o monitor Oral Anticoagulant t herapy in stablized pa tients. The INR Therape utic Range is 2.0 - 3.0 Patients with a mechanical hear t, the INR Range is 2. 5 - 3.5 STLMLCT BRAIN (CODE TPA/ ACUTE STROKE PROTOCOL) W/O [id number] 11:26:53 [facility] ([facility]/[place])Name: ICNDY CARDONA : 1945 Sex: FCT BRAIN (CODE TPA/ ACUTE STROKE PROTOCOL) W/O CONOrdering Provider: DR NAVARRETE [facility] Hospitaltory: [phone]: Cerebrovascular accidentComparison studies: CTA head 07/10/2018 and brain MRI 11/12/2018Technique:Noncontrast axial scans were obtained from skull base to the vertex. [place] sagittal reconstructions obtained from the axial data. One or more of thefollowing dose reduction techniques were used: Automated exposure control,adjustment of the mA and/or kV according to patient size, and/or utilization ofiterative reconstruction technique.DISCUSSION:Scalp/Skull: Small left parieto-occipital scalphematoma/laceration. Nocalvarial fracture.Brain sulci: Mildly prominent.Ventricles: Compensatory dila tation.Extra-axial spaces: No masses or fluid collections. 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 Small left mastoid effusion.IMPRESSION:1. Small left parieto-occipital scalp hematoma/laceration without calvarialfracture.2. No acute intracranial abnormalities.3. Mild supratentorial chronic microvascular ischemic change with old rightstriatocapsular and left putamen lacunar infarcts.4. Mild generalized cerebral volume loss.This final report was electronically signed by Dr Raji Muir MD 1:20 AMDictated By: RAJI MUIRDate: 01/22/2022 11:20 STLMLCBC WITH AUTO [id number] 11:24:00 Test Item Value Reference Range Interpretation Comments WBC (test code = 4.50 10\\S\\3/ul 4.80-10.80 L WBC) RBC (test code = 3.64 10\\S\\6/ul 4.20-5.40 L RBC) Hemoglobin (test 10.3 gm/dl 12.0-14.0 L code = HGB) Hematocrit (test 33.0 % 37.0-47.0 L code = HCT) MCV (test code = 90.7 fL 81.0-99.0 MCV) MCH (test code = 28.3 pg 27.0-31.0 MCH) MCHC (test code = 31.2 gm/dl 33.0-37.0 L MCHC) RDW (test code = 14.5 % 11.5-14.5 RDWVC) Platelet (test code 200 10\\S\\3/ul 130-400 = PLT) MPV (test code = 11.2 fL 7.4-10.4 A "NOT MEASUR ED" MPV) RESULTS ARE DIS PLAYED WHEN THE INSTRU MENT HAS A SUPPRESSE D OR UNREPORTABLE RE SULT. THIS WILL MOST OFTEN HAPPEN WITH THE MPV WHEN THERE IS A N ABNORMAL PLATEL ET DISTRIBUTION DU E TO A CRITICAL LOW VA LUE OR PLATELET CLUMPI NG. THE RDW MAY BE SUPPRESSED IF T HERE ARE MULTIPLE PE AKS PRESENT ON THE RBC HISTOGRAM. IN T HIS CASE, A MANUAL REVIEW OF THE SLIDE WI LL BE PERFORMED, AND RBC MORPHOLOGY WILL BE NOTED ON THE RE PORT. NE% (test code = 49.1 % 42.0-75.0 NE) LY% (test code = 29.6 % 13.0-42.0 LY) MO% (test code = 15.1 % 4.0-14.0 H MO) EO% (test code = 3.1 % 1.0-5.0 EO) BA% (test code = 0.7 % 0.0-3.0 BA) IG% (test code = 2.4 % 0.0-0.4 H IG%) STLMLXR CHEST AP/PA 1 [id number] 11:22:21 [facility] ([facility]/[place])Name: CINDY CARDONA : 1945 Sex: FEXAMINATION: XR CHEST AP/PA 1 VIEWINDICATION: Cerebrovascular accident. Cardiac pulmonary disease?NCOMPARISON: March 02, 2017.FINDINGS:TUBES and LINES: None.LUNGS: Lungs are well inflated. Lungs are clear. There is no evidence ofpneumonia or pulmonary edema.PLEURA: No pleural effusion or pneumothorax.HEART AND MEDIASTINUM: The cardiomediastinal silhouette is unremarkable. Thereare atherosclerotic calcifications within the aorta.BONES AND SOFT TISSUES: No acute osseous lesion. Soft tissues areunremarkable.UPPER ABDOMEN: No free air under the diaphragm.IMPRESSION:No acute thoracic abnormality.This final report was electronically signed by Dr Allen Ariza MD 1:16 AMDictated By: ALLEN ARIZADate: 01/22/2022 11:16STLMLHISTOLOGY [id number] 11:52:00 [address] [place], [place] [address]Nvjys: [phone] RLLE #: [id number] Diathermy Equipment Repairer: Manuel Gloria M.D.Surgical Pathology Consultation ReportPatient Name: CINDY CARDONA Case #: [id number] Med. Rec. #:[id number]: AD[place]-[facility]INA Surgery Date: 06/11/2021 : 1945 (Age: 76) Received: 06/14/2021 Gender: F Copy to : Reported: 06/14/2021hysician(s): Jonathan Wood Specimen(s) ReceivedA: Colon, polyp B: Hemorrhoid at 5 o'clock C: Hemorrhoid at 1 o'clock Final Pathologic DiagnosisA. Colon at 14 cm, polypectomy:- hyperplastic polyp. B. Anorectal tissue at5 o'clock, hemorrhoidectomy:- hemorrhoids. C. Anorectal tissue at 1 o'clock, hemorrhoidectomy:- hemorrhoids. Electronically Signed Out tc/06/14/2021 Manuel Gloria MD, Board Certified in Anatomic Pathology Clinical HistorySecond degree hemorrhoids. Gross DescriptionSpecimen A is labeled polyp at 14 cm. A single piece of olson-pink tissuemeasuring 0.2 x 0.2 x 0.1 cm is submitted in toto in cassette A.Specimen B is labeled hemorrhoid at 5 o'clock. A single piece oftan-pinktissue measuring 3 x 1 x 0.3 cm is received. The entire specimen issubmittedin cassette B.Specimen C is labeled hemorrhoid at 1 o'clock. A single piece oftan-pinktissue measuring 0.3 x 0.2 x 0.2 cm is submitted in toto in cassette C. Manuel Gloria MD, Board Certified in Anatomic Pathology Microscopic DescriptionMicroscopic examination of specimen A, labeled colon polyp at 14 cm,reveals ahyperplastic polyp. This hyperplastic polyp is composed of somesawtooth-shaped like glandular structures which are lined by a singlelayer ofcolumnar epithelial cells. No areas of invasive carcinoma are seen. Examination of specimen B, labeled anorectal tissue at 5 o'clock, andspecimenC, labeled anorectal tissue at 1 o'clock, reveals hemorrhoids. There aresomedilated, thin-walled and thick-walled vascular spaces which are filledwithperipheralblood and fibrin. The overlying squamous mucosa shows somereactivechanges. There is some colonic mucosa present in specimen B. Billing Fee Code(s): A; 12504O; 77433X; [id number] 2019 (IN [place])(3HR) 2021-06-08 17:12:00 Test Item Value Reference Range Interpretation Comments FT (test code Negative Negative N The BioGX SARS -CoV-2 = COVID) (qualifier value) Reagents f or BD MAX System, the Bio Lectorati Covid-19, and t he Cepheid Covid-1 9 is for in vitro us e under FDA Emergency U se Authorization o nly. Each method abo ve is a rapid, real declan e PCR (RT-PCR) molecu lar test used for t he qualitative det ection of nucleic acid from the SARS-CoV-2 in upper respirato ry specimens colle cted from individual s suspected of CO VID-19. For questions regarding your test results, please contact the [facility] at [phone]. [id number] 10:51:00 Test Item Value Reference Range Interpretation Comments Glucose (test code 97 mg/dl 75-110 = GLU) BUN (test code = 21.0 mg/dl 6.0-17.0 H BUN) Creatinine (test 1.2 mg/dl 0.4-1.2 code = CREA) Sodium (test code = 141 mmol/l 137-145 NA) Potassium (test 4.3 mmol/l 3.5-5.0 code = K) Chloride (test code 110 mmol/l 98-107 H = CL) CO2 (test code = 30 mmol/l 22-30 CO2) Calcium (test code 9.4 mg/dl 8.4-10.2 = CALC) EGFR if 56 Congolese (test code mL/min/1.73m\\ = EGFRAA) S\\2 EGFR if Non- 46 Estimate d Glomerular Congolese (test code mL/min/1.73m\\ Filtrat ion Rate (eGFR) = EGFRNA) S\\2 Reference Inter vals Decision Points for 18 years and older and average body ma ss: >= 60 Does not exc lude kidney disease. 30 - 59 Suggests mod erate chronic kidney disease and indicates t he need for further investigation including asses sment of proteinuria and cardiovascular factors. < 30 U sually indicates a nee d for referral for assessment and management of c hronic kidney failure. STLMLCBC WITH AUTO [id number] 10:06:00 Test Item Value Reference Range Interpretation Comments WBC (test code = WBC) 4.96 10\\S\\3/ul 4.80-10.80 RBC (test code = RBC) 3.81 10\\S\\6/ul 4.20-5.40 L Hemoglobin (test code = HGB) 10.9 gm/dl 12.0-14.0 L Hematocrit (test code = HCT) 34.6 % 37.0-47.0 L MCV (test code = MCV) 90.8 fL 81.0-99.0 MCH (test code = MCH) 28.6 pg 27.0-31.0 MCHC (test code = MCHC) 31.5 gm/dl 33.0-37.0 L RDW (test code = RDWVC) 13.6 % 11.5-14.5 Platelet (test code = PLT) 222 10\\S\\3/ul 130-400 MPV (test code = MPV) 11.0 fL 7.4-10.4 A NE% (test code = NE) 55.5 % 42.0-75.0 LY% (test code = LY) 30.4 % 13.0-42.0 MO% (test code = MO) 9.5 % 4.0-14.0 EO% (test code = EO) 2.8 % 1.0-5.0 BA% (test code = BA) 0.8 % 0.0-3.0 IG% (test code = IG%) 1.0 % 0.0-0.4 H STLMLXR LSP COMP/BENDING VWS MIN 6 [id number] 11:43:48 [facility] ([facility])Name: CINDY CARDONA : 1945 Sex: FLumbar spine series with flexion and extension views, 7 views:History: Spinal stenosis, lower back painAP, lateral, spot lateral and both oblique views were obtained as well aslateral flexion and extension views.There is a mild dextroscoliosis. No fracture is identified. There is a grade 1spondylolisthesis of L4 anteriorly on L5 appearing unchanged from lumbar spineMRI of 11/08/20. Minimal retrolisthesis of L1 on L2 is also again noted. Thereis narrowing of the disc space at L4-5 with small marginal osteophytesconsistent with degenerative disc disease. Vacuum disc is noted at L1-2. No parsdefectsare noted. Facet arthrosis is present at L4-5 and L5-S1. The pediclesare intact.The flexion and extension views show limited range of motion with no significantchange in the spondylolisthesis at L1-2 and L4-5. The sacroiliac joints appearunremarkable.Impression:1. Lumbar spondylosis and mild dextroscoliosis as described. No evidence offracture.2. Grade 1 spondylolisthesis at L4-5 and minimal retrolisthesis at L1-2appearing unchanged from recent MRI examination.3. Limited range of motion on flexion and extension.This final report was electronically signed by Dr Yen Thorne MD 111:38 AMDictated By: YEN THORNEDate: 01/27/2021 11:38[facility] W/O [id number] 13:47:02 [facility] ([facility]/)Name: CINDY CARDONA : 1945 Sex: FMRI of the lumbar spine without contrast:History: Low back pain, spinal stenosisMultiplanar magnetic resonance imaging of the lumbar spine was performed withoutcontrast.Comparison is made to 09/02/19.There is a grade 1 spondylolisthesis of L4 on L5 appearing unchanged as well asvery minimal retrolisthesis of L1 on L2. Slight narrowing of the disc space andmarginal spurring is also present at L4-5 compatible with degenerative discdisease and appearing unchanged. No compression fracture or marrow edema isnoted.At T12-L1 there is no significant abnormality.At L1-2 there is mild disc bulging but no spinal or foraminal stenosis.At L2-3 there is no significant abnormality.At L3-4 there is diffuse disc bulging and facet arthrosis with ligamentousinfolding. There is moderate spinal stenosis but no significant foraminalnarrowing. No significant change from the prior study is noted.At L4-5 there is uncovering of the disc by the spondylolisthesis, which issecondary to severe facet arthrosis at this level.There is a mild superimposeddisc bulging again noted. There is associated ligamentous infolding. Severespinal stenosis is again present at the inferior aspect of the disc level andappears stable. Thereis no significant foraminal encroachment, with mild rightforaminal stenosis present.At L5-S1 there is advanced bilateral facet arthrosis. No disc bulge orherniation is identified. No evidence of spinalor foraminal stenosis.The conus is unremarkable and is in normal position. Partial visualization of alarge left renal cyst is again noted.Impression:1. No significant interval change compared to 09/02/19. Multilevel disc bulgingand facet arthrosis as noted with stable grade 1 spondylolisthesis at L4-5.2. There is again severe spinal stenosis at L4-5 secondary to thespondylolisthesis, disc bulging and advanced facet arthrosis.3. Moderate spinal stenosis at L3-4 secondary to the disc bulging and facetar throsis remains stable.This final report was electronically signed by Dr Yen Thorne MD 11:41 PMDictated By: YEN THORNEDate: 01/08/2021 13:41 [facility] ([facility])2019-10-10 16:23:01Renal ultrasound:History: Congenital renal cystCompared to 10/25/[address] scan dated 05/23/11.The right kidney measures 10.5 cm, with a cortical thickness of 1.3 cm. The leftkidney measures 11.3 cm, with a cortical thickness of 1.1 cm.Parenchymal echogenicity is within normal limits. 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 Alarge exophytic simple left renal cyst is also again noted. The cyst measures9.4 x 6.3 x 9.3 cm, not significantly changed from the prior ultrasound.The bladder appeared unremarkable. Postvoid bladder residual is 36 mL.Impression:1. No significant change from 10/25/16. Large exophytic left renal cyst againnoted.2. There are 2 small right renal angiomyolipoma is again noted.3. No evidence of nephrolithiasis or hydronephrosis.This final report was electronically signed by Dr Yen Thorne MD 10/10/20194:16 PMDictated By: YEN HESSDate: 10/10/2019 16:16[facility] MAMMO SCRN 3D GEOFFREY 2019-10-10 15:58:49Procedure: MM MAMMO SCRN 3D TOMOExam Date: 10/10/2019 2:00 PMOrdering Provider: DR MIESHA GARCIAClinical Indication: Digital screening mammography.Comparison: 06/25/18, 03/04/14, 07/12/12, 11/05/09 and ultrasound dated 12/04/09Technique: 3-D tomosynthesis views of both breasts were obtained. The study isinterpreted using computer-aided detection (CAD).Findings:The breasts are heterogeneously dense which lowers the mammographic sensitivityto detect malignancy.There are no suspicious masses in either breast. Stable low density nodule inthe upper central to outer mid right breast previously shown to represent acyst.There are benign calcifications in each breast.There are no pathologic skin or nipple alterations.Impression:1. No mammographic evidence of malignancy.2. Recommend annual mammographic followup.3. Patient is entered into a reminder system with a target due date for the nextmammogram in one year.BI- RADS Category 2: Benign findingsThis final report was electronically signed by Dr Yen Thorne MD 10/10/20193:52 PMDictated By: YEN THORNEDate: 10/10/2019 15:52[facility] LSPINE W/O [id number] 08:33:44"If patient is claustrophobic, contact ordering ysician for additional instructions."MRI of the lumbar spine without contrast:History: Low back painMultiplanar magnetic resonance imaging of the lumbar spine was performed withoutcontrast.There is a grade 1 spondylolisthesis of L4 on L5 appearing unchanged compared toplain films dated 04/11/19. There is otherwise normal alignment of the lumbarspine on the sagittal images. Right narrowing of the disc space and marginalspurring is also present at L4-5 compatible with degenerative disc disease. Nocompression fracture or marrow edema is noted.At T12-L1, L1-2 and L2-3 there is no significant abnormality.At L3-4 there is diffuse disc bulging and facet arthrosis with ligamentousinfolding. There is moderate spinal stenosis no significant foraminal narrowing.At L4-5 there is uncovering of the disc by the spondylolisthesis. There is asmall superimposed disc bulging. The spondylolisthesis is secondary to severefacet arthrosis at this level. There is associated ligamentous infolding. Severespinal stenosis is noted at the inferior aspect of the disc level. There is nosignificant foraminal encroachment.At L5-S1 there is advanced bilateral facet arthrosis. No disc bulge orherniation is identified. No evidence of spinal or foraminal stenosis.The conus is unremarkable and is in normal position. Partial visualization of alarge left renal cyst isincidentally noted.Impression:1. Degenerative disc disease, severe facet arthrosis and grade 1spondylolisthesis at L4-5. There is severe spinal stenosis as described.2. Disc bulging and facet arthrosisat L3-4 with moderate spinal stenosis.This final report was electronically signed by Dr Yen cabrera MD 09/03/20198:27 AMDictated By: YEN THORNEDate: 09/03/2019 08:27[facility] BONE DENSITY AXIAL [id number] 13:05:02EXAM: Bone mineral density studyExam Date: April 11, 2019Ordering Physician: DR MIESHA GARCIAClinical Indication: [id number]: Disorder associated with menstruation AND/ORmenopauseComparison: NoneDISCUSSION:Evaluation of the left hip, right hip and lumbar spine was performed.Findings:Left hip:Bone mineral density: T-score is -1.8. There is osteopenia of the left hip.Right Hip:Bone mineral density: T- score is -2.1. There is osteopenia of the right hip.Lumbar spine:Bone mineral density: T-score is -0.0. There is normal bone density of thelumbar spine.IMPRESSION:1. Bone mineralization by WHO Classification is osteopenia bilateral hips, thefracture risk is Increased.2. Please see attached report for quantitative and recommendations.T score:NML = -1 or higherOsteopenia = -1.1 to -2.4Osteoporosis = -2.5 or lowerThis final report was electronically signed by Dr Yen Thorne MD 04/11/201912:58 PMDictated By: Blayne THORNE: 04/11/2019 12:58[facility] LUMBAR SPINE (AP/LATERAL)2019-04-11 12:00:31MR spine AP and lateral, 3 views:History: Back painAP, lateral and spot lateral views were obtained.There is a minimaldextroscoliosis. No fracture is identified. There is grade 1 spondylolisthesisat L4-5 with approximately 9 mm anterolisthesis of L4 on L5. Narrowing of theL4-5 disc space with anterior spurring is also present. There is minimalretrolisthesis of L1 on L2. Mild osteopenia is noted. Thepedicles are intact.Impression:1. Grade 1 spondylolisthesis at L4-5 and minimal retrolisthesis at L1-2.2. Degenerative disc disease at L4-5.This final report was electronically signed by Dr Yen Thorne MD 04/11/201911:54 AMDictated By: Blayne THORNE: 04/11/2019 11:54 [facility]ICOCT ANGIO HEAD W/WO [id number] 11:24:4320 g Cathlon Above the Antecubital or higher requi red ORIGINALCTA head:History: Lacunar infarction, memory loss, confusionCT angiography of the head was performed using multidetector helical imagingfollowing bolus intravenous injection of 80 mL of Isovue-370. Dose reductiontechnique was employed using automated exposure control and adjustment of mAand/or kV according to patient size. Total DLP 588 mGy-cm, inclusive of CTA neckperformed concurrently.The internal carotid arteries are symmetric and widely patent bilaterally. Thevertebral arteries and basilar artery are also widely patent. There isessentially a origin of the left [employer] HE[employer] OFFICER via the supraclinoid carotid withhypoplastic left P1 segmentas a normal variation. The posterior cerebral arterybranches as visualized are otherwise unremarkable. The anterior and middlecerebral artery branches show no significant abnormality. No aneurysm isidentified.Impression: No significant abnormality is identified.This final report was electronically signed by Dr Yen Thorne MD 07/10/201811:28 PMDictated By: Sacha THORNEte: 07/10/2018 23:28 ADDENDUMImage postprocessing was performed on the acquisition workstation yieldingmultiplanar reconstructions and 3-D MIP images.This final report was electronically signed by Dr Yen Thorne MD 07/23/201811:18 AMDictated By: Sacha THORNEte:07/23/2018 11:18 [facility], [id number] 08:49:00 Test Item Value Reference Range Interpretation Comments COPPER, BLOOD (test 104 ug/dL 72-166 N Detecti on Limit = 5 code = 994200) PERFORMED AT: [facility] [id number] PHYSICIANS ASSISTANT: Chaparro Mena MD PHONE: [phone] Lutheran Medical CenterVITAMIN B1, WHOLE [id number] 08:49:00 Test Item Value Reference Range Interpretation Comments VIT. B1, WHOLE 212.5 nmol/L 66.5-200.0 H This test was developed BLOOD (test code and its per formance = 212508) characteristics determined by [facility]. It has not been cl eared or approved by the Food and Drug Administra tion. PERFORMED AT: [facility] [id number] PHYSICIANS ASSISTANT: Chaparro Mena MD PHONE: [phone] Lutheran Medical CenterVITAMIN [id number] 08:49:00 Test Item Value Reference Range Interpretation Comments VITAMIN B6 (test 64.3 ug/L 2.0-32.8 H This test w as developed code = 435237) and its perfo rmance characteristics determined by [facility]. It has not been cleared or approved by the Food and Drug Administration. PERFORMED AT: [facility] [place] [address] [place], [place] [id number] PHYSICIANS ASSISTANT: Chaparro Mena MD PHONE: [phone] Lutheran Medical CenterJUAN, [id number] 08:49:00 Test Item Value Reference Range Interpretation Comments ZINC, PLASMA OR BLOOD 76 ug/dL 56-134 N Veri fied by repeat (test code = 171131) analysi s Detection Limit = 5 [facility] CenterHOMOCYSTEINE, [id number] 11:09:00 Test Item Value Reference Range Interpretation Comments HOMOCYST(E)INE, PLASMA (test code 11.7 umol/L 0.0-15.0 N = 319089) PERFORMED AT: [facility] [address] [id number] PHYSICIANS ASSISTANT: Masood Marroquin MD PHONE: [phone] Lutheran Medical Center CT ANGIO NECK W/WO [id number] 23:30:2420 g Cathlon Above the Antecubital or higher requi redCTA neck:History: Lacunar infarction, memory loss, confusionCT angiography of the neck was performedusing multidetector helical imagingfollowing bolus intravenous injection of 80 mL of Isovue-370. Dose reductiontechnique was employed using automated exposure control and adjustment of mAand/or kV according to patient size. Total DLP 588 mGy-cm, inclusive of CTA headperformed concurrently.There is mild calcification of the aortic arch. The great vessel origins arewidely patent. The right common carotid artery is tortuous but appears widelypatent. The right carotid bifurcation and cervical right ICA are widely patent.There is tortuosity of the left common carotid artery also noted. There islimited mixed plaque at the left carotid bulb and proximal ICA but nosignificant narrowing is noted. The mid and distal cervical left ICA is tortuousbut appears widely patent.Both vertebral arteries are patent and show no significant stenosis. The rightvertebral artery is dominant.Impression: Limited atherosclerotic changes at the left carotid bifurcation. Nosignificant stenosis of either carotid system is identified. Patent bilateralvertebral arteries.This final report was electronically signed by Dr Jayden CAPELLAN 07/10/201811:24 PMDictated By: YEN THORNEDate: 07/10/2018 23:24[facility] (Ultra Sensitive)2018-07-10 16:06:00 Test Item Value Reference Range Interpretation Comments TSH (test code = TSH) 2.83 mIU/L 0.35-3.74 [facility] CenterFOLATE2018-11-27 16:06:00 Test Item Value Reference Range Interpretation Comments Folic Acid (test code = FOLIC) >100.0 ng/ml 3.1-17.5 H [facility] CenterB12, [id number] 16:06:00 Test Item Value Reference Range Interpretation Comments B12 (test code = B12) 857 pg/ml 239-941 [facility] CenterFREE [id number] 16:05:00 Test Item Value Reference Range Interpretation Comments Free T4 (test code = FT4) 0.71 ng/dl 0.70-2.20 [facility] CenterVITAMIN [id number] 15:34:00 Test Item Value Reference Range Interpretation Comments Vitamin D (test code = 52.4 VITAM IN D NORMAL RANGES: TVITD) Deficient <20 I nsufficient 20-<30 Sufficie nt 30-100 Potential Toxic ity >100 [facility] CenterT3, [id number] 15:33:00 Test Item Value Reference Range Interpretation Comments TOTAL T3 (test code = TT3) 0.96 ng/ml 0.97-1.69 L [facility] CenterC-REACTIVE [id number] 15:32:00 Test Item Value Reference Range Interpretation Comments C REACTIVE PROTEIN (test code = <2.9 mg/dl 0.0-0.3 H CRP) [facility] CenterRPR2018-11-27 15:31:00 Test Item Value Reference Range Interpretation Comments FT (test code = RPR) Non-Reactive (qualifier Non-Reactive N value) [facility] HospitalstonERYTHROCYTE SED [id number] 15:12:00 Test Item Value Reference Range Interpretation Comments Sed Rate (test 23 mm/hr 0-35 EFFECTIVE -, THE code = ESR) METHODOLOGY USE D FOR ERYTHROCYTE SED IMENTATION RATE HAS CHANGE D. THE NORMAL RANGES H AVE CHANGED. PLEASE NOTE CHRISTOPHER T RANGES ARE DEFINED BY THE AGE OF THE PATIENT. NEW RE FERENCE RANGES: Females 0-49 years old = 0-25 mm/h r Females 50-999 years ol d = 0-35 mm/hr Males 0-4 9 years old = 0-20 mm/hr Ma les 50-999 years old = 0-2 5 mm/hr [facility] WITH AUTO [id number] 14:34:00 Test Item Value Reference Range Interpretation Comments WBC (test code = 5.39 10\\S\\3/ul 4.80-10.80 WBC) RBC (test code = 4.01 10\\S\\6/ul 4.20-5.40 L RBC) Hemoglobin (test 11.7 gm/dl 12.0-14.0 L code = HGB) Hematocrit (test 37.0 % 37.0-47.0 code = HCT) MCV (test code = 92.3 fL 81.0-99.0 MCV) MCH (test code = 29.2 pg 27.0-31.0 MCH) MCHC (test code = 31.6 gm/dl 33.0-37.0 L MCHC) RDW (test code = 13.2 % 11.5-14.5 RDWVC) Platelet (test code 234 10\\S\\3/ul 130-400 = PLT) MPV (test code = 11.1 fL 7.4-10.4 A "NOT MEASUR ED" MPV) RESULTS ARE DIS PLAYED WHEN THE INSTRU MENT HAS A SUPPRESSE D OR UNREPORTABLE RE SULT. THIS WILL MOST OFTEN HAPPEN WITH THE MPV WHEN THERE IS A N ABNORMAL PLATEL ET DISTRIBUTION DU E TO A CRITICAL LOW VA LUE OR PLATELET CLUMPI NG. THE RDW MAY BE SUPPRESSED IF T HERE ARE MULTIPLE PE AKS PRESENT ON THE RBC HISTOGRAM. IN T HIS CASE, A MANUAL REVIEW OF THE SLIDE WI LL BE PERFORMED, AND RBC MORPHOLOGY WILL BE NOTED ON THE RE PORT. NE% (test code = 53.8 % 42.0-75.0 NE) LY% (test code = 36.4 % 13.0-42.0 LY) MO% (test code = 6.3 % 4.0-14.0 MO) EO% (test code = 2.4 % 1.0-5.0 EO) BA% (test code = 0.4 % 0.0-3.0 BA) IG% (test code = 0.7 % 0.0-0.4 H IG%) [facility]MP2018-[facility] 14:05:00 Test Item Value Reference Range Interpretation Comments Glucose (test code 106 mg/dl 75-110 = GLU) BUN (test code = 20.0 mg/dl 6.0-17.0 H BUN) Creatinine (test 1.5 mg/dl 0.4-1.2 H code = CREA) Sodium (test code = 141 mmol/l 137-145 NA) Potassium (test 3.7 mmol/l 3.5-5.0 code = K) Chloride (test code 104 mmol/l 98-107 = CL) CO2 (test code = 29 mmol/l 22-30 CO2) Calcium (test code 9.9 mg/dl 8.4-10.2 = CALC) T Protein (test 7.9 gm/dl 5.1-8.7 code = TP) Albumin (test code 4.3 gm/dl 3.5-4.6 = ALB) A/G Ratio (test 1.2 % 1.1-2.2 code = AGRAT) AST (SGOT) (test 14 U/L 11-36 code = AST) ALT (SGPT) (test 21 U/L 11-40 code = ALT) Alkaline Phos (test 90 U/L 47-114 code = ALKP) Total Bilirubin 0.2 mg/dl 0.2-1.2 (test code = TBIL) Globulin (test code 3.6 gm/dl 2.3-3.5 H = GLOBU) Calcium, Corrected 9.7 mg/dl 8.4-10.2 Various f ormulas exist (test code = for corrected s kilo CALCCORR) calcium results , each yielding differ ent values. This co rrected result was base d on the formula: Co rrected Calcium = Serum Calcium + [0.8 * ( 4 - SerumAlbumin)] EGFR if 44 Congolese (test code mL/min/1.73m\\ = EGFRAA) S\\2 EGFR if Non- 36 Estimate d Glomerular Congolese (test code mL/min/1.73m\\ Filtrat ion Rate (eGFR) = EGFRNA) S\\2 Reference Inter vals Decision Points for 18 years and older and average body ma ss: >= 60 Does not exc lude kidney disease. 30 - 59 Suggests mod erate chronic kidney disease and indicates t he need for further investigation including asses sment of proteinuria and cardiovascular factors. < 30 U sually indicates a nee d for referral for assessment and management of c hronic kidney failure. [facility] MAMMO SCRN 3D [id number] 14:36:21 Procedure: MM MAMMO SCRN 3D TOMOExam Date: 06/25/2018 3:00 PMOrdering Provider: DR KANDICE COLLINSClinical Indication: Digital screening mammography.Comparison: March 04, 2014 and July 12, 2012Technique: 3-D tomosynthesis views of both breasts were obtained. The study isinterpreted using computer-aided detection (CAD).Findings:The breasts are heterogeneously dense which lowers the mammographic sensitivityto detect malignancy.There are no suspicious masses in either breast. Stable low density nodule inthe upper central to outer mid right breast.There are benign calcifications in each breast.There are no pathologic skin or nipple alterations.Impression:1. No mammographic evidence of malignancy.2. Recommend annual mammographic followup.3. Patient is entered into a reminder system with a target duedate for the nextmammogram in one year.BIRADS Result 2: Benign findings.This final report was electronically signed by Dr Yen Thorne MD 06/25/20182:30 PMDictated By: YEN THORNEDate: 8 14:30[facility] BRAIN WO/W [id number] 13:31:40"If patient is claustrophobic, contact ordering ysician for additional instructions."MRI of the brain with and without contrast:Date: 06/25/2018History: Mild cognitive impairment, memory lossMultiplanar whole brain magnetic resonance imaging was performed prior to andfollowing intravenous injection of 15 mL of MultiHance.No acute ischemic changes or areas of restricted diffusion are noted. There isno evidence of intracranial hemorrhage, mass effect or midline shift. Theventricular system is normal in size and configuration. The basal cisterns arepatent. Age-appropriate cortical atrophy is noted.On the FLAIR and T2- weighted images there are scattered small discrete foci ofhyperintensity in the subcortical and periventricular white matter. They do notenhance with contrast. They are nonspecific but may well represent changes ofchronic microvascular disease. A tiny remote lacunar infarct in the leftlentiform nucleus is also incidentally noted.The sella and parasellar structures appear within normal limits. There arenormal flow voids in the visualized major intracranial vasculature.Thecerebellar tonsils are in normal position. Opacification of several left mastoidair cells is incidentally noted. There is no abnormal contrast enhancement.Impression:1. No acute intracranial abnormality or abnormal contrast enhancement.2. Nonenhancing foci of T2/FLAIR hyperintensity in the white matter as noted,nonspecific.2. Remote tiny left basal ganglia lacunar infarct.This final report was electronically signed by Dr Yen Thorne MD 06/25/20181:25 PMDictated By: YEN THORNEDate: 06/25/2018 13:25[facility] [id number] 14:55:00 Test Item Value Reference Range Interpretation Comments Troponin-I (test <0.012 ng/ml 0.000-0.034 N [address] URL code = TROP) is 0.034 ng/mL. The Joint Societ y of Cardiology/Amer ican College of Card iology (ESC/ACC) and [facility] y of Clinical Bioche nel Standards of La boratory Practices (NACB ) recommends that the diagnosis of AM I includes the presence of clinical history suggest gregorio of Acute Coronary Syndrome (ACS) and a max imum concentration o f cardiac troponin exceed ing the 99th percentile of a normal referenc e population [upp er reference limit (URL)] on at least one oc casion during the firs t 24 hours after the clini amilcar event. [facility] CenterPRO-BNP(B-Type Natriuretic Peptide)2017-03-10 12:11:00 Test Item Value Reference Range Interpretation Comments Pro-BNP(B-Peptide) (test code = 89 pg/ml 0-125 PROBNP) [facility]CPK2017-07-28 12:11:00 Test Item Value Reference Range Interpretation Comments CPK (test code = CPK) 34 U/L 30-135 [facility] CenterTROPONIN-I [id number] 12:11:00 Test Item Value Reference Range Interpretation Comments Troponin-I (test <0.012 ng/ml 0.000-0.034 N [address] r[address]ile URL code = TROP) is 0.034 ng/mL. The Joint Societ y of Cardiology/Amer [facility] College of Card iology (ESC/ACC) and [facility] y of Clinical Bioche nel Standards of La boratory Practices (NACB ) recommends that the diagnosis of AM I includes the presence of clinical history suggest gregorio of Acute Coronary Syndrome (ACS) and a max imum concentration o f cardiac troponin exceed ing the 99th percentile of a normal referenc e population [upp er reference limit (URL)] on at least one oc casion during the firs t 24 hours after the clini amilcar event. [facility] CenterCMP2017-07-28 12:08:00 Test Item Value Reference Range Interpretation Comments Glucose (test code 105 mg/dl 75-110 = GLU) BUN (test code = 18.0 mg/dl 6.0-17.0 H BUN) Creatinine (test 1.3 mg/dl 0.4-1.2 H code = CREA) Sodium (test code = 143 mmol/l 137-145 NA) Potassium (test 4.1 mmol/l 3.5-5.0 code = K) Chloride (test code 105 mmol/l 98-107 = CL) CO2 (test code = 22 mmol/l 22-30 CO2) Calcium (test code 10.6 mg/dl 8.4-10.2 H = CALC) T Protein (test 7.6 gm/dl 5.1-8.7 code = TP) Albumin (test code 4.6 gm/dl 3.5-4.6 = ALB) A/G Ratio (test 1.5 % 1.1-2.2 code = AGRAT) AST (SGOT) (test 27 U/L 11-36 code = AST) ALT (SGPT) (test 22 U/L 11-40 code = ALT) Alkaline Phos (test 95 U/L 47-114 code = ALKP) Total Bilirubin 0.3 mg/dl 0.2-1.2 (test code = TBIL) Globulin (test code 3.0 gm/dl 2.3-3.5 = GLOBU) Anion Gap (test 17 code = GAP) Calcium, Corrected 10.1 mg/dl 8.4-10.2 Various f ormulas exist (test code = for corrected s kilo CALCCORR) calcium results , each yielding differ ent values. This co rrected result was base d on the formula: Co rrected Calcium = Serum Calcium + [0.8 * ( 4 - SerumAlbumin)] EGFR if 52 Congolese (test code mL/min/1.73m\\ = EGFRAA) S\\2 EGFR if Non- 43 Estimate d Glomerular Congolese (test code mL/min/1.73m\\ Filtrat ion Rate (eGFR) = EGFRNA) S\\2 Reference Inter vals Decision Points for 18 years and older and average body ma ss: >= 60 Does not exc lude kidney disease. 30 - 59 Suggests mod erate chronic kidney disease and indicates t he need for further investigation including asses sment of proteinuria and cardiovascular factors. < 30 U sually indicates a nee d for referral for assessment and management of c hronic kidney failure. [facility] CenterMAGNESIUM2017-07-28 12:08:00 Test Item Value Reference Range Interpretation Comments Magnesium (test code = MG) 2.0 mg/dl 1.6-2.3 [facility] CenterD-DIMER [id number] 12:02:00 Test Item Value Reference Range Interpretation Comments D DIMER (test 0.27 mg/L FEU 0.19-0.50 METHOD CHANGE : 09/19/2012 code = D DIM) Due to the dis continued mehodology curr ently in use, a change i n the testing method is necessary. The Reference Ranges will noé nge dramatically, a nd results are obt ained by the observance of clotting activa tion mesured on the Sysmex instruments. Th is same methodology is currently in use for PT/I NR , PTT, AND HEPARIN candida ting in our Labs. The D -Dimer assay is an aid in the evaluation of thromboembolic events, as in DIC, DVT, Pulmonary Embol ism, and other thromboem bolic diseases, and s hould not be used without other diagnostic destiny ures, to properly diagno se and treat thromboem bolic disease. REFERE NCE RANGE: 0.19 - 0 .50 mg/L FEU (Fibrinogen Equivalent Unit s) Cut-Off Value i s: > .50 mg/L FEU No te: Results greater than (>) the Cut-Off are to be considered POSI TIVE, and significant in the evaluation of thromboembolic diseases. Results less th an (<) the Cut-Off are to be considered NEGA TIVE, and a low probabili ty of thromboembolic disease. [facility] CenterCB WITH AUTO [id number] 11:41:00 Test Item Value Reference Range Interpretation Comments WBC (test code = WBC) 7.9 k/ul 4.8-10.8 RBC (test code = RBC) 4.30 Millions/ul 4.20-5.40 Hemoglobin (test code = HGB) 12.4 gm/dl 12.0-14.0 Hematocrit (test code = HCT) 37.4 % 37.0-47.0 MCV (test code = MCV) 87.1 fL 81.0-99.0 MCH (test code = MCH) 28.8 pg 27.0-31.0 MCHC (test code = MCHC) 33.0 gm/dl 33.0-37.0 RDW (test code = RDWVC) 14.3 % 11.5-14.5 Platelet (test code = PLT) 200 k/ul 130-400 MPV (test code = MPV) 9.9 fL 7.4-10.4 NE% (test code = NE) 67.0 % 42.0-75.0 LY% (test code = LY) 22.8 % 13.0-42.0 MO% (test code = MO) 8.2 % 4.0-14.0 EO% (test code = EO) 1.5 % 1.0-3.0 BA% (test code = BA) 0.5 % 1.0-3.0 L NRBC, Auto (test code = 0 /100WBC 0-0 NRBC_AUTO) [facility] CenterIMMUNOFIXATION, [id number] 07:55:00 Test Item Value Reference Range Interpretation Comments MERISSA INTERPRETATION:U Comment Felicitas cervantes Protein (test code = 610487) positiv e; lambda type. PERFORMED AT: DA [facility] [place] [address] [facility] [address] [place], [place] [id number] PHYSICIANS ASSISTANT: SUZANNE Huff MD PHONE: [phone] [facility] SatelliteLECTROPHORESIS & IMMUNOFIXATION, SERUM [id number] 08:09:00 Test Item Value Reference Range Interpretation Comments PROTEIN, TOTAL, BLOOD 6.7 g/dL 6.0-8.5 N (test code = 007049) IMMUNOGLOBULIN G, QN, 794 mg/dL 700-1600 N BLOOD (test code = 902750) IMMUNOGLOBULIN A, QN, 26 mg/dL 64-422 L Result confirmed on BLOOD (test code = concentra tion. 283152) IMMUNOGLOBULIN M, QN, 14 mg/dL 26-217 L Result confirmed on BLOOD (test code = concentra tion. 177912) ALBUMIN (test code = 4.2 g/dL 2.9-4.4 N 067424) KTDDN-8-KVYXVBTA (test 0.2 g/dL 0.0-0.4 N code = 683350) ECCTI-3-UIKEORTA (test 0.6 g/dL 0.4-1.0 N code = 980513) BETA GLOBULIN (test 0.9 g/dL 0.7-1.3 N code = 708297) GAMMA GLOBULIN (test 0.8 g/dL 0.4-1.8 N code = 275344) M-SPIKE (test code = 0.2 g/dL Not Observed H 658001) GLOBULIN, TOTAL (test 2.5 g/dL 2.2-3.9 N code = 666925) A/G RATIO (test code = 1.7 0.7-1.7 N 859467) IMMUNOFIXATION RESULT, Note: Immun ofixation shows BLOOD (test code = IgG monoc lonal protein 470456) with lambda lig ht chain specifici ty. With an apparen t monoclonal free lambda light chain. Holt ggest urine analysis for Bence Mohan. PLEASE NOTE: (test Comment Protein code = 169121) electrophores is scan will follow via computer, mail, or pig farmer deliver y. PERFORMED AT: [facility] [place] [address] [place], [place] [id number] PHYSICIANS ASSISTANT: Masood Marroquin MD PHONE: [phone] PERFORMED AT: [facility] [id number] PHYSICIANS ASSISTANT: SUZANNE Huff MD PHONE: [phone] Lutheran Medical CenterIMMUNOFIXATION, SERUM 2016-11-13 08:09:00 Test Item Value Reference Range Interpretation Comments IMMUNOFIXATION RESULT, Note: Immun ofixation shows BLOOD (test code = IgG monoc lonal protein 262052) with lambda lig ht chain specifici ty. With an apparen t monoclonal free lambda light chain. Holt ggest urine analysis for Bence Mohan. IMMUNOGLOBULIN G, QN, 793 mg/dL 700-1600 N BLOOD (test code = 715653) IMMUNOGLOBULIN A, QN, 30 mg/dL 64-422 L Result confirmed on BLOOD (test code = concentra tion. 127480) IMMUNOGLOBULIN M, QN, 15 mg/dL 26-217 L Result confirmed on BLOOD (test code = concentra tion. 748693) PERFORMED AT: [facility] [id number] PHYSICIANS ASSISTANT: SUZANNE Huff MD PHONE: [phone] PERFORMED AT: [facility] [id number] PHYSICIANS ASSISTANT: Masood Marroquin MD PHONE: [phone] Lutheran Medical CenterPROTEIN/CREATNINE RATIO, Random [id number] 07:38:00 Test Item Value Reference Range Interpretation Comments CREATININE, URINE (test code = 172.2 mg/dL Not Estab. N 281891) PROTEIN,TOTAL,URINE (test code 23.1 mg/dL Not Estab. N = 255162) PROTEIN/CREAT RATIO (test code 134 mg/g creat 0-200 N = 046484) [facility] CenterURIC [id number] 18:31:00 Test Item Value Reference Range Interpretation Comments Uric Acid (test code = URICA) 5.0 mg/dl 2.4-7.2 [facility] CenterPTH INTACT (IH)2016-11-09 18:31:00 Test Item Value Reference Range Interpretation Comments PTH, INTACT (test code = PTH) 16 -65 [facility] CenterBMP2017-03-29 18:31:00 Test Item Value Reference Range Interpretation Comments Glucose (test code 83 mg/dl 75-110 = GLU) BUN (test code = 20.0 mg/dl 6.0-17.0 H BUN) Creatinine (test 1.2 mg/dl 0.4-1.2 code = CREA) Sodium (test code = 146 mmol/l 137-145 H NA) Potassium (test 4.1 mmol/l 3.5-5.0 code = K) Chloride (test code 104 mmol/l 98-107 = CL) CO2 (test code = 24 mmol/l 22-30 CO2) Calcium (test code 10.1 mg/dl 8.4-10.2 = CALC) EGFR if 57 Congolese (test code mL/min/1.73m\\ = EGFRAA) S\\2 EGFR if Non- 47 Estimate d Glomerular Congolese (test code mL/min/1.73m\\ Filtrat ion Rate (eGFR) = EGFRNA) S\\2 Reference Inter vals Decision Points for 18 years and older and average body ma ss: >= 60 Does not exc lude kidney disease. 30 - 59 Suggests mod erate chronic kidney disease and indicates t he need for further investigation including asses sment of proteinuria and cardiovascular factors. < 30 U sually indicates a nee d for referral for assessment and management of c hronic kidney failure. [facility] CenterURINALYSIS WITH [id number] 18:27:00 Test Item Value Reference Range Interpretation Comments Color (test code = UCOLR) Yellow Clarity (test code = UCLAR) CLEAR Glucose (test code = UGLUC) NEGATIVE NEGATIVE N Bilirubin (test code = UBILI) NEGATIVE NEGATIVE N Ketones (test code = UKET) NEGATIVE NEGATIVE N Specific [place] (test code = USPGR) >=1.030 1.005-1.030 A Blood (test code = UBLD) NEGATIVE NEGATIVE N PH (test code = UPH) 5.5 4.5-8.0 A Protein (test code = UPROT) NEGATIVE NEGATIVE N Urobilinogen (test code = U UROB) 0.2 >0.2 N Nitrite (test code = UNITR) NEGATIVE NEGATIVE N Leukocyte Esterase (test code = SMALL NEGATIVE A ULEUK) WBC (test code = WBCUR) 10-20 0-5 A RBC (test code = RBCUR) 0-1 0-5 A Epithial Cells (test code = U EPI) 5-10 0-10 A Mucous (test code = UMUC) Trace None Seen A Bacteria (test code = UBACT) Trace None Seen,Trace N [facility] CenterMICROALBUMIN, RANDOM [id number] 18:24:00 Test Item Value Reference Range Interpretation Comments Creatinine Urine 187.6 mg/dl 10.0-300.0 Random (test code = CREAR) Microalbumin, 32.45 mg/L If Microalbumi n is Urine (test code <6.00, unab le to = MALBU) calculate Ratio since non-numeric res ult was obtained for co mponent test. INTERPRET ATION OF RESULTS: 0 29 NO MICROALBUMIN URIA 30 300 CLINICAL MICROALBUMINURI A >300 - MACROALBUMINU JORGE Microalbumin/Crea 17.30 mg/g If Microal bumin is tinine Ratio Creatinine <5.00, unable t o (test code = calculate Ratio since MRATIO) non-numeric res ult was obtained for co mponent test. INTERPRET ATION OF RESULTS: 0 - 29 - NO MICROALBUMIN URIA 30 - 300 - CLINICA L MICROALBUMINURI A > 300 - MACROALBUMINU JORGE [facility] CenterPHOSPHOROUS, [id number] 18:24:00 Test Item Value Reference Range Interpretation Comments Phosphorus (test code = PHOS) 4.3 mg/dl 2.5-4.5 [facility]
[2023-03-11 09:37] LABS: Absolute Lymphocytes (CBC) 1.3 K/uL (0.7-4.9); Lymphocytes % 34.3 % (15.3-44.8); MCV 88.8 fL (80-100); MPV 8.7 fL (7.6-11.3); RBC Red Blood Cell Count 3.49 M/uL (3.86-4.86)
[2023-03-11 09:38] LABS: Specific Gravity 1.017 (1.005-1.030); Urine Bacteria <20 /HPF (<20); Urine Bilirubin NEGATIVE (Negative); Urine Blood 1+ (Negative); Urine Clarity Clear (Clear); Urine Color Light-Yellow (Yellow); Urine Glucose NEGATIVE (Negative); Urine Protein TRACE (Negative); Urine Urobilinogen Normal (Normal); Urine pH 6.5 (5.0-7.0)
[2023-03-11 10:06] LABS: Albumin 3.8 g/dL (3.4-5.0); Bilirubin Total 0.2 mg/dL (0.2-1.0); Potassium 4.2 mEq/L (3.5-5.1)
--- NOTE | 2023-03-11 10:42 | ER ---
Nurse's Notes [facility] Name: Roz Ambrose Age: 77 yrs Sex: Female : 1945 Arrival Date: 03/11/2023 Time: 08:43 Bed 19 Private MD: Diagnosis: Localized edema;Chronic kidney disease, unspecified Presentation: 03/11 09:05 Chief complaint: Patient states: B feet/leg swelling off/on for 2 weeks. No fever. ll1 Started a new medication about 2 weeks ago Mrybetriq. Coronavirus screen: Vaccine status: Patient reports receiving the 2nd dose of the covid vaccine. Client denies travel out of the [place] in the last 14 days. At this time, the client does not indicate any symptoms associated with coronavirus-19. Ebola Screen: Patient denies travel to an Ebola-affected area in the 21 days before illness onset. Initial Sepsis Screen: Does the patient meet any 2 criteria? No. Patient's initial sepsis screen is negative. Does the patient have a suspected source of infection? No. Patient's initial sepsis screen is negative. Risk Assessment: Do you want to hurt yourself or someone else? Patient reports no desire to harm self or others. Onset of symptoms was February 25, 2023. 09:05 Method Of Arrival: Ambulatory ll1 09:05 Acuity: AMILCAR 3 ll1 Triage Assessment: 09:07 General: Appears in no apparent distress. Behavior is calm, cooperative, appropriate ll1 for age. Pain: Complains of pain in ankles Quality of pain is described as squeezing, tender. Musculoskeletal: Circulation, motion, and sensation intact. Capillary refill < 3 seconds, Reports B leg swelling for 2 weeks. Historical: - Allergies: 09:04 No Known Allergies; ll1 - PMHx: 09:04 Hypertensive disorder; overactive bladder; Depressive disorder; ll1 - Immunization history:: Adult Immunizations up to date. - Social history:: Smoking status: Patient denies any tobacco usage or history of. Screenin:15 [facility] ED Fall Risk Assessment (Adult) History of falling in the last 3 months, ld1 including since admission No falls in past 3 months (0 pts). Abuse screen: Denies threats or abuse. Denies injuries from another. Nutritional screening: No deficits noted. Tuberculosis screening: No symptoms or risk factors identified. Assessment: 09:15 General: Appears in no apparent distress. comfortable, Behavior is calm, cooperative, ld1 appropriate for age. Pain: Denies pain. Neuro: Level of Consciousness is awake, alert, obeys commands, Oriented to person, place, time, situation. Cardiovascular: Capillary refill < 3 seconds Patient's skin is warm and dry. Respiratory: Airway is patent Respiratory effort is even, unlabored. GI: Abdomen is flat, non-distended. : No signs and/or symptoms were reported regarding the genitourinary system. EENT: No signs and/or symptoms were reported regarding the EENT system. Derm: No signs and/or symptoms reported regarding the dermatologic system. Musculoskeletal: No signs and/or symptoms reported regarding the musculoskeletal system. Vital Signs: 09:05 BP 190 / 79; Pulse 80; Resp 17; Temp 98.1; Pulse Ox 97% on R/A; Pain 4/10; ll1 10:10 BP 141 / 51; Pulse 70; Resp 18; Pulse Ox 100% on R/A; ld1 10:40 BP 130 / 62; Pulse 71; Resp 18; Pulse Ox 100% on R/A; ld1 09:05 Pain Scale: Adult ll1 ED Course: 08:47 Patient arrived in ED. kj1 08:50 Ramon Vasquez DO is Attending Physician. ms3 08:51 Laurence Olvera NP is PHCP. aj3 08:55 Arm band placed on Patient placed in an exam room, on a stretcher. ll1 09:04 Jaylene Vasquez, RN is Primary Nurse. ld1 09:06 Triage completed. ll1 09:15 Patient has correct armband on for positive identification. Placed in gown. Bed in low ld1 position. Call light in reach. Side rails up X2. laboratory monitor on. Pulse ox on. NIBP on. Door closed. Noise minimized. Warm blanket given. 09:15 No provider procedures requiring assistance completed. ld1 09:32 D-Dimer Sent. ld1 09:32 CMP Sent. ld1 09:32 CBC with Diff Sent. ld1 09:32 BNP Sent. ld1 09:32 Urinalysis W/Microscopic Sent. ld1 10:40 IV discontinued, intact, bleeding controlled, No redness/swelling at site. ld1 10:41 Provided Education on: none. ld1 Administered Medications: No medications were administered Medication: 10:40 VIS not applicable for this client. ld1 Outcome: 10:40 Discharged to home ambulatory. ld1 10:40 Condition: stable 10:40 Discharge instructions given to patient, Instructed on discharge instructions, follow up and referral plans. Demonstrated understanding of instructions, follow-up care. 10:42 Discharge ordered by . aj3 10:58 Patient left the ED. ld1 Signatures: Kat Gasca kj1 Jackie Kang, RN RN ll1 Ramon Vasquez DO DO ms3 Jaylene Vasquez RN RN ld1 Laurence Olvera, INVENTORY SPECIALIST INVENTORY SPECIALIST aj3 Corrections: (The following items were deleted from the chart) 09:07 09:06 Arm band placed on Patient placed ll1 ll1
--- NOTE | 2023-03-11 10:42 | EDPHYS ---
Physician Documentation [facility] Name: Roz Ambrose Age: 77 yrs Sex: Female : 1945 Arrival Date: 03/11/2023 Time: 08:43 Bed 19 Private MD: ED Physician Ramon Vasquez HPI: 03/11 09:23 This 77 yrs old Female presents to ER via Ambulatory with complaints of Feet Swelling, aj3 Leg Swelling. 09:23 The patient presents with a rash, swelling. Patient reports that her symptoms started aj3 about 2 weeks ago shortly after starting a new medication for overactive bladder called Mirabegron. She reports she also having pain associated with the swelling along with a red-colored rash. She does report that the medication is helping her urinary frequency and urgency. No reports of any shortness of breath, chest pain, lip swelling, nausea/vomiting.. Historical: - Allergies: 09:04 No Known Allergies; ll1 - PMHx: 09:04 Hypertensive disorder; overactive bladder; Depressive disorder; ll1 - Immunization history:: Adult Immunizations up to date. - Social history:: Smoking status: Patient denies any tobacco usage or history of. ROS: 09:23 Constitutional: Negative for fever, chills, and weight loss, Neck: Negative for injury, aj3 pain, and swelling. 09:23 Respiratory: Negative for shortness of breath, cough, wheezing, and pleuritic chest pain, Abdomen/GI: Negative for abdominal pain, nausea, vomiting, diarrhea, and constipation, : Negative for dysuria, hematuria, discharge or pelvic pain 09:23 Cardiovascular: Positive for edema. 09:23 MS/extremity: Positive for pain, swelling. 09:23 Skin: Positive for erythema, rash. Exam: 09:23 Constitutional: This is a well developed, well nourished patient who is awake, alert, aj3 and in no acute distress. Head/Face: Normocephalic, atraumatic. Neck: Supple, full range of motion without nuchal rigidity. Cardiovascular: Regular rate and rhythm with a normal S1 and S2. No gallops, murmurs, or rubs. Normal PMI, no JVD. No pulse deficits. Respiratory: Lungs have equal breath sounds bilaterally, clear to auscultation and percussion. No rales, rhonchi or wheezes noted. No increased work of breathing, no retractions or nasal flaring. Abdomen/GI: Soft, non-tender, with normal bowel sounds. No distension or tympany. No guarding or rebound. No evidence of tenderness throughout. 09:23 : CVA tenderness, that is mild. 09:23 Musculoskeletal/extremity: Extremities: grossly normal except: Bilateral pedal edema/tenderness with petechiae like rash, Sensation intact. Vital Signs: 09:05 BP 190 / 79; Pulse 80; Resp 17; Temp 98.1; Pulse Ox 97% on R/A; Pain 4/10; ll1 10:10 BP 141 / 51; Pulse 70; Resp 18; Pulse Ox 100% on R/A; ld1 10:40 BP 130 / 62; Pulse 71; Resp 18; Pulse Ox 100% on R/A; ld1 09:05 Pain Scale: Adult ll1 MDM: 08:55 Patient medically screened. aj3 09:23 Differential diagnosis: DVT, vasculitis, renal insufficiency, fluid retention. aj3 09:28 Data reviewed: vital signs, nurses notes. aj3 10:44 Data reviewed: lab test result(s), I have discussed the patient's presentation/case aj3 with the attending Emergency Department Physician;. Consideration of Admission/Observation No admission warranted. I considered the following discharge prescriptions or medication management in the emergency department I discussed and recommended Over The Counter medications, Pain Medications: At this time, prescription pain medications are not recommended. Test considered but Not performed: Ultrasound venous Doppler considered but D-dimer negative relative to age. Counseling: I had a detailed discussion with the patient and/or guardian regarding: the historical points, exam findings, and any diagnostic results supporting the discharge/admit diagnosis, lab results, the need for outpatient follow up, to return to the emergency department if symptoms worsen or persist or if there are any questions or concerns that arise at home. ED course: ED work-up reassuring with renal insufficiency, anemia and proteinuria. Patient was aware of these results assess her baseline. She is cleared for discharge at this time. Results discussed in detail and advised her to stop the medication until she can follow-up with her PCP. ER return precautions given. 03/11 09:05 Order name: Urinalysis W/Microscopic; Complete Time: aj3 03/11 09:05 Order name: BNP; Complete Time: 10: 3 03/11 09:05 Order name: CBC with Diff; Complete Time: 16:39 3 03/11 09:05 Order name: CMP; Complete Time: : 3 03/11 09:08 Order name: D-Dimer; Complete Time: : aj3 Administered Medications: No medications were administered Disposition: 17:28 Co-signature as Attending Physician, Ramon Vasquez DO I was immediately available on-site ms3 in the Emergency Department for consultation in the care of the patient. Disposition Summary: 03/11/23 10:42 Discharge Ordered Location: Home aj3 Problem: new aj3 Symptoms: are unchanged aj3 Condition: Stable aj3 Diagnosis - Localized edema aj3 - Chronic kidney disease, unspecified aj3 Followup: aj3 - With: Private Physician - When: - Reason: Recheck today's complaints, Re-evaluation by your physician Followup: aj3 - With: Emergency Department - When: - Reason: Worsening of condition Discharge Instructions: - Discharge Summary Sheet aj3 - Peripheral Edema aj3 Forms: - Medication Reconciliation Form aj3 - Thank You Letter aj3 - Antibiotic Education aj3 - Prescription Opioid Use aj3 - Patient Portal Instructions aj3 Signatures: Dispatcher [employer] Jackie Jon RN RN ll1 Ramon Vasquez DO DO ms3 Laurence Olvera, [employer] AND [employer]ING OPERATOR aj3
[2023-03-11 11:02] VITALS: TEMP 98.1
[2023-03-11 11:04] VITALS: O2SAT 100
[2023-03-11 11:05] VITALS: BP 130/62
[2023-03-11 12:35] LABS: Blood Morphology Comment NOTED (NOT SEEN); Ovalocytes 1+; Platelet Estimate ADEQ
== END 2023-03-11 10:58 | disposition home or self-care (01) ==
LOC: ER 08:43
DX: R60.0 Localized edema (principal); I12.9 Hypertensive chronic kidney disease with stage 1 through stage 4 chronic kidney disease, or unspecified chronic kidney disease; N18.9 Chronic kidney disease, unspecified
CPT/HCPCS: 36415; 80053; 81001; 83880; 85025; 85379; 99284

== ENCOUNTER → 2023-09-25 | Emergency (ER) | payer OTHER ==
[~2023-09-25] MED LIST: CEFTRIAXONE 1000 MG/VIAL ONE; HALOPERIDOL LACT 5 MG/ML INJ ONE; METOCLOPRAMIDE 10 MG/2mL INJ ONE; MORPHINE 4 MG/ML SYR ONE; NA CHLORIDE 0.9% 1,000 ML ONE; NA CHLORIDE 0.9% 100 ML ONE; NA CHLORIDE 0.9% 50 ML ONE
[2023-09-25 10:37] LABS: Absolute Lymphocytes (CBC) 1.9 K/uL (0.7-4.9); Hematocrit 33.1 % (36.0-45.0); Lymphocytes % 29.5 % (15.3-44.8); MCV 86.6 fL (80-100); MPV 8.5 fL (7.6-11.3); Platelets 255 thou/uL (152-406); RBC Red Blood Cell Count 3.82 M/uL (3.86-4.86)
[2023-09-25 10:54] LABS: Protime INR 0.96
[2023-09-25 10:58] LABS: Specific Gravity 1.007 (1.005-1.030); Urine Bacteria None Seen /HPF (<20); Urine Bilirubin NEGATIVE (Negative); Urine Blood Trace (Negative); Urine Clarity Turbid (Clear); Urine Color Colorless (Yellow); Urine Glucose NEGATIVE (Negative); Urine Mucus Slight /HPF (None Seen); Urine Protein 1+ (Negative); Urine RBC <5 /HPF (None Seen); Urine Urobilinogen Normal (Normal); Urine pH 5.5 (5.0-7.0)
[2023-09-25 10:58] LABS: Albumin 3.4 g/dL (3.4-5.0); Bilirubin Total 0.5 mg/dL (0.2-1.0); Potassium 3.5 mEq/L (3.5-5.1); Protein, Total 6.9 g/dL (6.4-8.2)
--- NOTE | 2023-09-25 12:21 | RAD REPORT ---
EXAM DESCRIPTION: CT - Abdomen Pelvis W Contrast - 09/25/2023 11:13 am CLINICAL HISTORY: ABD PAIN COMPARISON: No comparisons TECHNIQUE: Thin cut axial CT imaging of the abdomen and pelvis was performed following intravenous a dministration of 100 mL Isovue 300. Multiplanar reformats were generated and reviewed. All CT scans are performed using dose optimization technique as appropriate and may include automated exposure control or mA/KV adjustment according to patient size. FINDINGS: No suspicious findings in the lung bases. The liver, spleen, adrenal glands, and pancreas show no suspicious findings. Gallbladder is decompres sed limiting evaluation. No findings to suggest intra hepatic biliary ductal dilation. The main pancr eatic duct is prominent in caliber, measuring up to 5 mm. Symmetric renal function is seen with no hydronephrosis or suspicious renal mass. Small renal cortica l cysts on the right, and the dominant left mid to lower pole cyst measuring 9.2 cm. Nonobstructing 6 mm left lower pole calculus. Mild dilation of long segments of small bowel, with partial segmental mucosal hyperenhancement. Short -segment air-fluid levels seen throughout. Fluid distention throughout most of the proximal colon, wi th long segments of loss of on striation along the transverse and descending colon. A defect is seen along the left lateral wall of the bladder, measuring approximately 1 cm in coronal view, see series 202, image 49. The bladder is decompressed, with somewhat irregular wall thickening superiorly and on the left. Fat stranding as well as non loculated gas extend along the left pelvic sidewall with mini mal extent of non loculated gas locules along the prevesical space as well. Trace free fluid in the p kai. No other evidence of free intraperitoneal air,, or other inflammatory stranding. No hernia, ma ss or bulky lymphadenopathy. No suspicious bony findings. 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 Non loculated gas extends along the left pelvic sidewall and prevesical space, likely all extraperitoneal. This gas may relate to recent instrumentat ion or recent catheter removal, and possibility of a gas-forming organism infection is considered les s likely. Long segment small and large bowel dilation with small bowel segments of mucosal hyperenhancement and large bowel areas of ahaustration. Findings suggest infectious or inflammatory enterocolitis. Nonspecific dilation of the main pancreatic duct. Correlation with pancreatic enzymes and bilirubin l evels is recommended. Nonobstructing 6 mm left lower pole renal calculus. Other incidental findings as above. The findings were communicated to Cristóbal Diaz on 09/25/2023 at 12:12 hours.
--- NOTE | 2023-09-25 13:24 | EDPHYS ---
Physician Documentation [facility] Name: Roz Ambrose Age: 78 yrs Sex: Female : 1945 Arrival Date: 09/25/2023 Time: 10:10 Bed 17 Private MD: ED Physician Cristóbal Diaz HPI: 09/25 10:14 This 78 yrs old Female presents to ER via Unassigned with complaints of ec2 Abdominal Pain. 10:14 Patient arrives today for abdominal pain and nausea and vomiting. Patient reports that ec2 she recently had a bladder mass resection approximately 1 week ago, states that she is been having some abdominal pain, states she been having decreased p.o. intake with associated nausea and vomiting. Patient reports she is also constipated. Patient reports no cough or cold symptoms, no fevers or chills. Reports no urinary complaints.. Historical: - Allergies: 10:15 No Known Allergies; db - PMHx: 10:15 depressive disorder; Hypertensive disorder; overactive bladder; db - Immunization history:: Client reports receiving the 2nd dose of the Covid vaccine. - Social history:: Smoking status: Patient/guardian denies using tobacco. ROS: 10:14 Constitutional: as per hpi ec2 Exam: 10:14 Constitutional: GEN: NAD Head: atraumatic Eyes: EOMI Ears: External ears are ec2 normal. CV: tachycardia LUNGS: no respiratory distress ABD: non-distended, soft, tender in the lower abdomen, not guarding, not rigid SKIN: no evidence of rashes MSK: no evidence of trauma NEURO: moves all extremities equally Vital Signs: 10:05 BP 93 / 53; Pulse 103; Resp 16; Temp 97.6(O); Pulse Ox 88% ; Weight 70.31 kg; Height 5 db ft. 3 in. ; 10:15 BP 94 / 45; Pulse 106; Resp 20; Pulse Ox 96% on 2 lpm NC; db 10:30 BP 77 / 57; Pulse 104; Resp 20; Pulse Ox 96% on 2 lpm NC; db 10:46 BP 84 / 72; Pulse 114; Resp 18; Pulse Ox 96% on 2 lpm NC; db 11:11 BP 116 / 59; Pulse 102; Resp 20; Pulse Ox 96% on 2 lpm NC; db 11:45 BP 104 / 57; Pulse 100; Resp 18; Pulse Ox 100% on 2 lpm NC; db 12:00 BP 95 / 61; Pulse 97; Resp 22; Pulse Ox 100% on 2 lpm NC; db 13:30 BP 124 / 86; Pulse 100; Resp 18; Pulse Ox 100% on R/A; db 14:00 BP 137 / 69; Pulse 105; Resp 22; Pulse Ox 100% on NC; db 15:00 BP 139 / 84; Pulse 102; Resp 24; Pulse Ox 100% on 2 lpm NC; db 16:00 BP 145 / 88; Pulse 98; Resp 18; Pulse Ox 96% on 2 lpm NC; db 10:05 Body Mass Index 27.46 (70.31 kg, 160.02 cm) db 10:30 ns started db MDM: 10:12 Patient medically screened. ec2 10:14 Data reviewed: vital signs. ED course: Patient arrives today for abdominal pain and ec2 nausea and vomiting. Examination remarkable for abdominal findings as noted above. Will obtain lab work, CT imaging and treat symptoms.. 10:31 ED course: EKG independently reviewed and interpreted by me, shows sinus tachycardia, ec2 rate of 109, no acute ST segment elevations, nonconcerning intervals.. 11:08 ED course: CBC reassuring. Metabolic profile with no electrolyte disturbances, renal ec2 dysfunction with a creatinine of 1.42 and a GFR of 37 noted, urine is noninfectious appearing, coagulation profile unremarkable, lipase within normal ranges. . 13:09 ED course: I discussed case with radiology, CT imaging shows no bladder mass removal, ec2 likely associated ileus first possible enterocolitis. . 02 10:13 Order name: CBC with Diff; Complete Time: 11:08 ec2 09/25 10:13 Order name: CMP; Complete Time: 11:08 ec2 09/25 10:13 Order name: Lipase; Complete Time: 11:08 ec2 09/25 10:13 Order name: Urinalysis w/ reflexes; Complete Time: 11:08 ec2 09/25 10:13 Order name: Blood Culture Adult (2) ec2 09/25 10:13 Order name: Lactate w/ 2H reflex if indic.; Complete Time: 11:34 ec2 09/25 10:13 Order name: Protime (+inr); Complete Time: 11:08 ec2 09/25 10:13 Order name: Ptt, Activated; Complete Time: 11:08 ec2 09/25 10:13 Order name: CT Abd/Pelvis - IV Contrast Only; Complete Time: 12:52 ec2 09/25 10:13 Order name: EKG; Complete Time: 10:14 ec2 09/25 10:13 Order name: IV Saline Lock; Complete Time: 11:21 ec2 09/25 10:13 Order name: Labs collected and sent; Complete Time: 11:21 ec2 09/25 10:13 Order name: Accucheck; Complete Time: 11:08 ec2 09/25 10:13 Order name: Cardiac monitoring; Complete Time: 11:08 ec2 09/25 10:13 Order name: EKG - Nurse/Tech; Complete Time: 10:53 ec2 09/25 10:13 Order name: IV Saline Lock - Large Bore; Complete Time: 10:53 ec2 09/25 10:13 Order name: O2 Per Protocol; Complete Time: 11:07 ec2 09/25 10:13 Order name: O2 Sat Monitoring; Complete Time: 11: ec2 09/25 10:13 Order name: Vital Signs; Complete Time: 11:07 ec2 09/25 14:49 Order name: Kenyon; Complete Time: 15:23 ec2 Administered Medications: 10:35 Drug: NS 0.9% IV 1000 ml IV at 1 bolus Per protocol; 1000 mL bolus Route: IV; Rate: 1 db bolus; Site: right antecubital; 11:07 Drug: Rocephin IV 1 grams IV at calculated rate once; Given slow IV push per pharmacy db instructions Route: IV; Rate: calculated rate; Site: left forearm; 11:08 Drug: Haloperidol IVP 2.5 mg/50 mL 2.5 mg IVP once; Place patient on a director of retail operations db Route: IVP; Site: right antecubital; 13:10 Drug: metoCLOPramide IVP 10 mg IVP once; over 1 to 2 minutes Route: IVP; Site: right db antecubital; 14:28 Drug: morphine IVP or IV 4 mg IVP once over 4 mins Route: IVP; Infused Over: 4 mins; db Site: right antecubital; Disposition Summary: 09/25/23 13:23 Transfer Ordered Notes: Transfer Location: [facility] ec2 Reason: Higher level of care ec2 Condition: Stable ec2 Problem: an acute exacerbation ec2 Symptoms: have improved ec2 Accepting Physician: transferring adán(09/25/23 16:53) db Diagnosis - Abdominal pain, unspecified ec2 - Sepsis, unspecified organism ec2 Forms: - Medication Reconciliation Form ec2 - SBAR form ec2 Critical care time excluding procedures: 15:59 Critical care time: Bedside Care: 30 minutes, Consultation: 15 minutes. Total time: 45 ec2 minutes Signatures: Dispatcher [employer] Lakisha Begum RN RN db Cristóbal Diaz MD MD ec2 Corrections: (The following items were deleted from the chart) 15:59 13:23 transferring doc ec2 ec2 16:53 15:59 transferring doc ec2 db
--- NOTE | 2023-09-25 13:24 | ER ---
Nurse's Notes [facility] Name: Roz Ambrose Age: 78 yrs Sex: Female : 1945 Arrival Date: 09/25/2023 Time: 10:10 Bed 17 Private MD: Diagnosis: Abdominal pain, unspecified;Sepsis, unspecified organism Presentation: 09/25 10:05 Chief complaint: EMS states: N/V WITH WEAKNESS, HX OF BLADDER SURGER 09/20 FOR TUMOR, db DISCHARGED MONDAY. LIVES AT [facility]. Coronavirus screen: Client denies travel out of the [place] in the last 14 days. At this time, the client does not indicate any symptoms associated with coronavirus-19. Ebola Screen: Patient negative for fever greater than or equal to 101.5 degrees Fahrenheit, and additional compatible Ebola Virus Disease symptoms Patient denies exposure to infectious person. Patient denies travel to an Ebola-affected area in the 21 days before illness onset. No symptoms or risks identified at this time. Initial Sepsis Screen: Does the patient meet any 2 criteria? HR > 90 bpm. Does the patient have a suspected source of infection? No. Patient's initial sepsis screen is negative. Risk Assessment: Do you want to hurt yourself or someone else? Patient reports no desire to harm self or others. Onset of symptoms was September 25, 2023. 10:05 Method Of Arrival: EMS: [facility] db 10:05 Acuity: AMILCAR 3 db 10:17 Care prior to arrival: Medication(s) given: Normal saline infusion, zofran 4 mg, IV db initiated. 18 GA, in the right Glucose check: 232. Triage Assessment: 10:15 General: Appears in no apparent distress. uncomfortable, Behavior is cooperative. Pain: db Denies pain. Complains of pain in abdomen. Neuro: Level of Consciousness is awake, alert, obeys commands, Oriented to person, place, time, situation. Respiratory: Airway is patent Respiratory effort is even, unlabored, Respiratory pattern is regular, symmetrical. GI: Abdomen is flat, non-distended, Reports constipation, nausea, vomiting. Historical: - Allergies: 10:15 No Known Allergies; db - PMHx: 10:15 depressive disorder; Hypertensive disorder; overactive bladder; db - Immunization history:: Client reports receiving the 2nd dose of the Covid vaccine. - Social history:: Smoking status: Patient/guardian denies using tobacco. Screenin:21 [facility] ED Fall Risk Assessment (Adult) History of falling in the last 3 months, db including since admission No falls in past 3 months (0 pts) Confusion or Disorientation No (0 pts) Intoxicated or Sedated No (0 pts) Impaired Gait Yes (1 pt) Mobility Assist Device Used Yes (1 pt) Altered Elimination Yes (1 pt) Score/Fall Risk Level 3 or more points = High Risk Oriented to surroundings, Maintained a safe environment. Abuse screen: Denies threats or abuse. Denies injuries from another. Nutritional screening: No deficits noted. Tuberculosis screening: No symptoms or risk factors identified. Assessment: 10:35 Reassessment: Patient appears in no apparent distress at this time. IN N OUT CATH db PERFORMED. NS STARTED. 10:35 Reassessment: Patient and/or family updated on plan of care and expected duration. Pain db level reassessed. Patient is alert, oriented x 3, equal unlabored respirations, skin warm/dry/pink. Pain: Complains of pain in abdomen. Neuro: Level of Consciousness is awake, alert, obeys commands, Oriented to person, place, time. 11:00 Reassessment: PT TO CT. db 11:23 Reassessment: PURIWICK PLACED AND ATTACHED TO SUCTION. PT RETURNED FROM CT. db 14:05 Reassessment: PATIENT SON AT BEDSIDE. db 14:29 Reassessment: Patient appears in no apparent distress at this time. Patient and/or db family updated on plan of care and expected duration. Pain level reassessed. Patient is alert, oriented x 3, equal unlabored respirations, skin warm/dry/pink. Patient states feeling better. General: Appears in no apparent distress. comfortable, Behavior is calm, cooperative. 15:23 Reassessment: Patient appears in no apparent distress at this time. Patient and/or db family updated on plan of care and expected duration. Pain level reassessed. Patient is alert, oriented x 3, equal unlabored respirations, skin warm/dry/pink. 15:30 Reassessment: CALLED [facility] TO GIVE PATIENT TRANSPORT REPORT. PT GOING TO [id number] NUMBER [phone]. STATES ROOM IS NOT CLEAN YET AND NURSE IS AT LUNCH AND TO CALL BACK IN 20 MINUTES. 16:33 Reassessment: REPORT GIVEN TO ZAC LEO. Respiratory: Airway is patent Respiratory db effort is even, unlabored, Respiratory pattern is regular, symmetrical. : Kenyon in place PLACED IN HOSPITAL, SEE DOCUMENTATION Reports incontinence. 16:49 Reassessment: EMS AT PATIENT BEDSIDE. db Vital Signs: 10:05 BP 93 / 53; Pulse 103; Resp 16; Temp 97.6(O); Pulse Ox 88% ; Weight 70.31 kg; Height 5 db ft. 3 in. ; 10:15 BP 94 / 45; Pulse 106; Resp 20; Pulse Ox 96% on 2 lpm NC; db 10:30 BP 77 / 57; Pulse 104; Resp 20; Pulse Ox 96% on 2 lpm NC; db 10:46 BP 84 / 72; Pulse 114; Resp 18; Pulse Ox 96% on 2 lpm NC; db 11:11 BP 116 / 59; Pulse 102; Resp 20; Pulse Ox 96% on 2 lpm NC; db 11:45 BP 104 / 57; Pulse 100; Resp 18; Pulse Ox 100% on 2 lpm NC; db 12:00 BP 95 / 61; Pulse 97; Resp 22; Pulse Ox 100% on 2 lpm NC; db 13:30 BP 124 / 86; Pulse 100; Resp 18; Pulse Ox 100% on R/A; db 14:00 BP 137 / 69; Pulse 105; Resp 22; Pulse Ox 100% on NC; db 15:00 BP 139 / 84; Pulse 102; Resp 24; Pulse Ox 100% on 2 lpm NC; db 16:00 BP 145 / 88; Pulse 98; Resp 18; Pulse Ox 96% on 2 lpm NC; db 10:05 Body Mass Index 27.46 (70.31 kg, 160.02 cm) db 10:30 ns started db ED Course: 10:12 Patient arrived in ED. ec2 10:12 Cristóbal Diaz MD is Attending Physician. ec2 10:13 Lakisha Moreno, ZAC is Primary Nurse. db 10:15 Triage completed. db 10:15 Arm band placed on Patient placed in an exam room. db 10:15 Maintain EMS IV. Dressing intact. Good blood return noted. Site clean \T\ dry. Gauge \T\ db site: RIGHT AC 18 G. 10:53 Blood Culture Adult (2) Sent. bc6 10:53 Lactate w/ 2H reflex if indic. Sent. [facility] 10:53 Inserted saline lock: 20 gauge in left wrist, using aseptic technique. Blood collected. [facility] 11:14 CT Abd/Pelvis - IV Contrast Only In Process Unspecified. EDMS 11:23 Patient has correct armband on for positive identification. Bed in low position. Call db light in reach. Side rails up X2. Client placed on continuous cardiac and pulse oximetry monitoring. NIBP monitoring applied. Warm blanket given. 15:23 Kenyon cath inserted, using sterile technique, 16 Fr., by fitness consultant, balloon inflated, to db gravity drainage. 16:50 No provider procedures requiring assistance completed. Patient transferred, IV remains db in place. 16:53 Provided Education on: TRANSFER. db Administered Medications: 10:35 Drug: NS 0.9% IV 1000 ml IV at 1 bolus Per protocol; 1000 mL bolus Route: IV; Rate: 1 db bolus; Site: right antecubital; 11:07 Drug: Rocephin IV 1 grams IV at calculated rate once; Given slow IV push per pharmacy db instructions Route: IV; Rate: calculated rate; Site: left forearm; 11:08 Drug: Haloperidol IVP 2.5 mg/50 mL 2.5 mg IVP once; Place patient on a manager monitoring db Route: IVP; Site: right antecubital; 13:10 Drug: metoCLOPramide IVP 10 mg IVP once; over 1 to 2 minutes Route: IVP; Site: right db antecubital; 14:28 Drug: morphine IVP or IV 4 mg IVP once over 4 mins Route: IVP; Infused Over: 4 mins; db Site: right antecubital; Medication: 16:53 VIS not applicable for this client. db Outcome: 13:23 ER care complete, transfer ordered by . ec2 16:50 Transferred by ground EMS Transfer form completed. db 16:50 Condition: stable 16:50 Instructed on the need for transfer, 16:53 Patient left the ED. db Signatures: Dispatcher [employer] Lakisha Begum, RN RN db Sharlene Ureña 6 Cristóbal Diaz MD MD ec2 Corrections: (The following items were deleted from the chart) 12:05 11:11 BP 116 / 59; Pulse 102bpm; Resp 96bpm; Pulse Ox 96% 2 lpm Nasal Cannula; db db
[2023-09-25 17:24] VITALS: BP 145/88; O2SAT 96
== END ==
LOC: ER 10:10
DX: R10.30 Lower abdominal pain, unspecified (principal); A41.9 Sepsis, unspecified organism; N20.0 Calculus of kidney; Z98.890 Other specified postprocedural states; I10 Essential (primary) hypertension
CPT/HCPCS: 93005; 87040 ×2; 85025; 81001; 36415; 85610; 83605; 85730; 83690; 80053; 74177; Q9967; J1630; J2765; J7030; J0696

== ENCOUNTER 2024-02-27 17:19 | Inpatient (IN) | payer OTHER ==
[2024-02-27] MEDS ORDERED: ONDANSETRON 4 MG/2 ML VIAL ONE (17:58)
--- NOTE | 2024-02-27 17:59 | RAD REPORT ---
EXAM DESCRIPTION: [place] Single View02/27/2024 5:45 pm CLINICAL HISTORY: Chest pain COMPARISON: February 15, 2024 FINDINGS: The lungs appear clear of acute infiltrate. The heart is normal size IMPRESSION: No acute abnormalities displayed
[2024-02-27 18:19] LABS: Absolute Eosinophils 0.1 K/uL (0-0.5); Absolute Lymphocytes (CBC) 1.2 K/uL (0.7-4.9); Absolute Monocytes 0.8 K/uL (0.1-1.3); Absolute Neutrophil 6.1 K/uL (1.8-8.0); Basophils % 0.5 % (0-1.3); Hematocrit 29.5 % (36.0-45.0); Hemoglobin 9.4 g/dL (12.0-15.0); Lymphocytes % 14.7 % (15.3-44.8); MCH 26.9 pg (27.0-35.0); MCHC 31.9 g/dL (32.0-36.0); MCV 84.3 fL (80-100); MPV 9.6 fL (7.6-11.3); Monocytes % 9.3 % (3.3-12.3); Neutrophils % 74.5 % (41.7-73.7); Platelets 263 thou/uL (152-406); Red Cell Distribution Width 15.8 % (12.1-15.2)
[2024-02-27 18:42] LABS: ALT/SGPT 119 U/L (13-56); AST/SGOT 79 U/L (15-37); Albumin 3.1 g/dL (3.4-5.0); Albumin/Globulin Ratio 0.8 (1.1-1.8); Alkaline Phosphatase 94 U/L (45-117); Anion Gap 9.8 mEq/L (5.0-15.0); BUN Blood Urea Nitrogen 35 mg/dL (7-18); Bicarbonate 25 mEq/L (21-32); Bilirubin Total 0.4 mg/dL (0.2-1.0); Globulin 3.7 g/dL (2.3-3.5); Glomerular Filtration Rate 37 ml/min (=/>90); Glucose Level 115 mg/dL (74-106); Lipase 274 U/L (13-75); Magnesium 1.3 mg/dL (1.6-2.4); Potassium 3.8 mEq/L (3.5-5.1); Protein, Total 6.8 g/dL (6.4-8.2); Sodium Level 142 mEq/L (136-145)
[2024-02-27 18:43] LABS: Bilirubin Direct < 0.2 mg/dL (0-0.2); Bilirubin Indirect, Calculated 0.2 mg/dL (0.2-0.8)
--- NOTE | 2024-02-27 19:35 | RAD REPORT ---
EXAM DESCRIPTION: CT - Head Brain Wo Cont - 02/27/2024 7:18 pm CLINICAL HISTORY: Alteration of awareness/confusion COMPARISON: February 12, 2024 TECHNIQUE: Computed axial tomography of the head was obtained. IV contrast was not requested. All CT scans are performed using dose optimization technique as appropriate and may include automated exposure control or mA/KV adjustment according to patient size. FINDINGS: An intracranial bleed is not seen The ventricles are normal in caliber No extra-axial fluid collection is noted. Images are degraded by patient motion artifact. Prominent low-density throughout trauma with right fr ontal lobe Fluid within the sinuses/ mastoids is not seen. IMPRESSION: Prominent low-density areas throughout right frontal lobe probably artifact. Infarction can have this appearance but probably is less likely. If patient's symptoms persist MRI of the brain would be recommended
[2024-02-27] MEDS ORDERED: NA CHLORIDE 0.9% 500 ML ONE (19:40)
--- NOTE | 2024-02-27 19:43 | RAD REPORT ---
EXAM DESCRIPTION: CT - Abdomen Pelvis Wo Contrast - 02/27/2024 7:21 pm CLINICAL HISTORY: Abdominal pain COMPARISON: February 14, 2024 TECHNIQUE: Computed axial tomography of the abdomen and pelvis was obtained. IV and oral contrast we re not requested. All CT scans are performed using dose optimization technique as appropriate and may include automated exposure control or mA/KV adjustment according to patient size. FINDINGS: The evaluation of solid organs, vessels and bowel is limited secondary to the lack of con trast administration. The liver, spleen, pancreas, and adrenals grossly normal Small angiomyolipomas right kidney 9.5 centimeter left renal cyst. Small nonobstructing left renal calculi There is no evidence of diverticulitis. Hysterectomy. No adnexal mass Bibasilar lung opacities have mostly resolved since the prior exam Small hiatal hernia. Mild anterior subluxation L4 on L5 IMPRESSION: No acute abnormality is displayed.
--- NOTE | 2024-02-27 21:06 | ER ---
Nurse's Notes [facility] Name: Roz Ambrose Age: 78 yrs Sex: Female : 1945 Arrival Date: 02/27/2024 Time: 17:19 Bed IW10 Private MD: Diagnosis: Altered mental status, unspecified Presentation: 02/26 17:20 Chief complaint: EMS states: Pt is from [facility] and hasn't been her usual self rs5 lately. She's been verbally abusive to staff and this just isn't like her. Coronavirus screen: At this time, the client does not indicate any symptoms associated with coronavirus-19. Ebola Screen: No symptoms or risks identified at this time. Initial Sepsis Screen: Does the patient meet any 2 criteria? No. Patient's initial sepsis screen is negative. Does the patient have a suspected source of infection? No. Patient's initial sepsis screen is negative. Risk Assessment: Do you want to hurt yourself or someone else? Patient reports no desire to harm self or others. Onset of symptoms was February 27, 2024. 17:20 Method Of Arrival: EMS: [facility] rs5 17:20 Acuity: AMILCAR 3 rs5 Historical: - Allergies: 17:22 NKDA; rs5 - PMHx: 17:22 Bladder cancer; depressive disorder; Hypertensive disorder; overactive bladder; rs5 - PSHx: 17:22 None; rs5 - Immunization history:: Adult Immunizations up to date. - Infectious Disease History:: Denies. - Social history:: Smoking status: Patient denies any tobacco usage or history of. Screenin:23 [facility] ED Fall Risk Assessment (Adult) History of falling in the last 3 months, rs5 including since admission No falls in past 3 months (0 pts) Confusion or Disorientation No (0 pts) Intoxicated or Sedated No (0 pts) Impaired Gait Yes (1 pt) Mobility Assist Device Used Yes (1 pt) Altered Elimination No (0 pt) Score/Fall Risk Level 0 - 2 = Low Risk Oriented to surroundings, Maintained a safe environment. Abuse screen: Denies threats or abuse. Nutritional screening: No deficits noted. Tuberculosis screening: No symptoms or risk factors identified. Assessment: 17:22 General: Appears in no apparent distress. uncomfortable, Behavior is calm, cooperative. rs5 Pain: Denies pain. Neuro: Level of Consciousness is awake, alert, obeys commands, Oriented to person, place, time, situation. Cardiovascular: Patient's skin is warm and dry. Respiratory: Airway is patent Respiratory effort is even, unlabored, Respiratory pattern is regular, symmetrical. GI: Abdomen is round non-distended, Abd is soft and non tender X 4 quads. GI: Reports nausea. : No signs and/or symptoms were reported regarding the genitourinary system. 17:22 EENT: No signs and/or symptoms were reported regarding the EENT system. Derm: Skin is rs5 intact, Skin is pink, warm \\T\\ dry. Musculoskeletal: Range of motion: intact in all extremities. 17:49 Reassessment: to bedside for EKG, pt states "I don't want to do the EKG" provider rs5 notified. 18:19 Reassessment: Patient and/or family updated on plan of care and expected duration. Pain rs5 level reassessed. Patient is alert, oriented x 3, equal unlabored respirations, skin warm/dry/pink. 19:51 General: Pt sitting up in bed pt given sprite. . jm12 20:14 General: Pt urinated on self. Pt was able to stand and sit in chair while bed was [facility] cleaned. Pt states she will agree to the EKG. Bed cleaned and pt back in bed in stable condition. Vital Signs: 17:20 BP 140 / 69; Pulse 73; Resp 17; Temp 97.8(O); Pulse Ox 99% ; rs5 18:19 BP 135 / 74; Pulse 70; Resp 17; Pulse Ox 99% on R/A; rs5 21:48 BP 135 / 85; Pulse 85; Resp 16; Temp 98.2; Pulse Ox 100% ; Pain 0/10; jm12 02/27 07:39 BP 154 / 81; Pulse 66; Resp 18; Temp 98.2; Pulse Ox 100% ; db 21:48 Pain Scale: Adult [facility] ED Course: 02/26 17:20 Patient arrived in ED. rs5 17:22 Triage completed. rs5 17:23 Patient has correct armband on for positive identification. Placed in gown. Bed in low rs5 position. Call light in reach. Side rails up X2. 17:23 No provider procedures requiring assistance completed. rs5 17:25 Tom Lees MD is Attending Physician. sp3 17:28 Aldo Oneil PA is PHCP. cp 17:34 Reinaldo Germain, AZC is Primary Nurse. rs5 17:45 Inserted saline lock: 20 gauge in right antecubital area, using aseptic technique. rs5 Blood collected. Flushed with 10 mL NS. 17:47 XRAY Chest (1 view) In Process Unspecified. EDMS 19:20 CT Head Brain wo Cont In Process Unspecified. EDMS 19:23 CT Abd/Pelvis - Without Contrast In Process Unspecified. EDMS 19:30 Arm band placed on. jm12 21:05 Nick Castellon is Hospitalizing Provider. cp 21:34 Warm blanket given. [2x]. oe 23:21 Patient admitted, IV remains in place. [facility] 02/27 09:06 Provided Education on: ADMISSION. db Administered Medications: 02/26 17:59 Drug: Ondansetron IVP 4 mg IVP once; over 2 minutes Route: IVP; Site: right antecubital;rs5 19:50 Drug: NS 0.9% IV 500 ml IV at 500 ml/hr continuous Route: IV; Rate: 500 ml/hr; Site: 12 right antecubital; 22:23 Follow up: IV Status: Completed infusion; IV Intake: 500ml [facility] 22:23 Follow up: Response: No adverse reaction [facility] 21:45 Drug: Magnesium Sulfate IVPB 1 grams IVPB once over 1 hrs Route: IVPB; Infused Over: 1 jm12 hrs; Site: right antecubital; 21:45 Not Given (med not avaliblee): folic acid1 mg IVPB once jm12 21:45 Drug: Aspirin PO 81 mg PO once Route: PO; jm12 22:22 Follow up: Response: No adverse reaction [facility] 21:45 Drug: Ativan IVP 0.5 mg IVP once Route: IVP; Site: right antecubital; jm12 22:22 Follow up: Response: No adverse reaction [facility] Medication: 17:24 VIS not applicable for this client. rs5 Intake: 22:23 IV: 500ml; Total: 500ml. [facility] Outcome: 21:05 Decision to Hospitalize by Provider. cp 23:21 Admitted to ER Hold. Please see [facility] for further documentation. jm12 23:21 Condition: stable 23:21 Instructed on the need for admit, Demonstrated understanding of instructions, 02/27 09:06 Patient left the ED. db Signatures: Dispatcher [employer] EDMS Aldo Oneil PA PA cp Espinosa, [place] oe Tom Lees MD MD sp3 Lakisha Moreno RN RN db Reinaldo Germain RN RN rs5 Lucía Willson RN RN jm12 Corrections: (The following items were deleted from the chart) 02/26 21:35 21:34 Warm blanket given. oe oe
--- NOTE | 2024-02-27 21:07 | EDPHYS ---
Physician Documentation [facility] Name: Roz Ambrose Age: 78 yrs Sex: Female : 1945 Arrival Date: 02/27/2024 Time: 17:19 Bed IW10 Private MD: ED Physician Tom Lees HPI: 02/26 17:35 This 78 yrs old Female presents to ER via EMS with complaints of Medication reaction. cp 17:35 The patient presents with agitation. Onset: The symptoms/episode began/occurred cp gradually, at an unknown time. 17:35 Possible causes: unknown. Associated signs and symptoms: Pertinent positives: nausea, cp vomiting, Pertinent negatives: abdominal pain, blurred vision, chest pain, confusion, dizziness, headache, seizure. Current symptoms: In the emergency department the patient's symptoms are unchanged from the initial presentation, despite EMS interventions. Patient's baseline: Neuro: alert and fully oriented, Motor: no deficits, Ambulation: walks with assist only, Speech: normal. Patient presents to ED by EMS after being sent from [facility] with a report that patient has been more verbally abusive to staff lately. Unknown onset. Historical: - Allergies: 17:22 NKDA; rs5 - PMHx: 17:22 Bladder cancer; depressive disorder; Hypertensive disorder; overactive bladder; rs5 - PSHx: 17:22 None; rs5 - Immunization history:: Adult Immunizations up to date. - Infectious Disease History:: Denies. - Social history:: Smoking status: Patient denies any tobacco usage or history of. ROS: 17:40 Constitutional: Negative for body aches, chills, fever, poor PO intake, cp 17:40 Cardiovascular: Negative for chest pain, edema, palpitations, cp 17:40 Respiratory: Negative for cough, shortness of breath, wheezing, 17:40 Abdomen/GI: Positive for nausea and vomiting, Negative for abdominal pain, diarrhea, constipation, 17:40 Neuro: Positive for change in behavior, Negative for dizziness, gait disturbance, headache, seizure activity, speech changes, syncope, 17:40 Eyes: Negative for injury, pain, redness, and discharge, cp 17:40 All other systems are negative, cp Exam: 17:45 Constitutional: The patient appears in no acute distress, alert, awake, cp non-diaphoretic, non-toxic, well developed, well nourished, 17:45 Head/Face: Normocephalic, atraumatic. cp 17:45 Eyes: Periorbital structures: appear normal, Pupils: equal, round, and reactive to light and accomodation, Extraocular movements: intact throughout, Conjunctiva: normal, no exudate, no injection, Sclera: no appreciated abnormality, Lids and lashes: appear normal, bilaterally, 17:45 ENT: External ear(s): are unremarkable, Nose: is normal, Mouth: Lips: moist, Oral mucosa: moist, Posterior pharynx: Airway: no evidence of obstruction, patent, 17:45 Neck: ROM/movement: Meningeal signs: are not present, nuchal rigidity, is not appreciated, 17:45 Chest/axilla: Inspection: normal, 17:45 Cardiovascular: Rate: normal, Rhythm: regular, Edema: is not appreciated, JVD: is not appreciated, 17:45 Respiratory: the patient does not display signs of respiratory distress, Respirations: normal, no use of accessory muscles, no retractions, labored breathing, is not present, Breath sounds: are clear throughout, no decreased breath sounds, no stridor, no wheezing, 17:45 Abdomen/GI: Inspection: scar(s), are noted in the mid line lower abdomen, Bowel sounds: active, all quadrants, Palpation: abdomen is soft and non-tender, in all quadrants, 17:45 Back: pain, is absent, 17:45 Neuro: Orientation: to person, place, situation, Mentation: able to follow commands, Motor: moves all fours, no focal deficits, Sensation: no obvious gross deficits, 20:24 ECG was reviewed by the Attending Physician. cp Vital Signs: 17:20 BP 140 / 69; Pulse 73; Resp 17; Temp 97.8(O); Pulse Ox 99% ; rs5 18:19 BP 135 / 74; Pulse 70; Resp 17; Pulse Ox 99% on R/A; rs5 21:48 BP 135 / 85; Pulse 85; Resp 16; Temp 98.2; Pulse Ox 100% ; Pain 0/10; [facility] 02/27 07:39 BP 154 / 81; Pulse 66; Resp 18; Temp 98.2; Pulse Ox 100% ; db 21:48 Pain Scale: Adult [facility] MDM: 02/26 17:30 Patient medically screened. cp 18:00 Differential Diagnosis: CVA, electrolyte abnormality, intracranial bleed, pneumonia, cp sepsis, TIA, UTI, volume depletion. 21:10 Data reviewed: vital signs, nurses notes, lab test result(s), EKG, radiologic studies, cp CT scan, plain films, and as a result, I will admit patient. 21:10 Management of patient was discussed with the following: Hospitalist: DR Castellon will cp admit after discussion. I considered the following discharge prescriptions or medication management in the emergency department Medications were administered in the Emergency Department. See MAR. Independent interpretation of the following test(s) in the Emergency Department EKG: See my EKG interpretation above. Discussion of test interpretation with radiology: I had a discussion with radiology regarding a test interpretation. results of head CT concerning possible acute/subacute stroke. Care significantly affected by the following chronic conditions: Hypertension, Cancer. Counseling: I had a detailed discussion with the patient and/or guardian regarding the historical points, exam findings, and any diagnostic results supporting the discharge/admit diagnosis, lab results, radiology results, the need for further work-up and treatment in the hospital. Response to treatment: the patient's symptoms have markedly improved after treatment. 02/26 17:30 Order name: Basic Metabolic Panel; Complete Time: 18:44 cp 02/26 18:44 Interpretation: Normal except: CL 111; GLUC 115; BUN 35; CRE 1.44; GFR 37. cp 02/26 17:30 Order name: CBC with Diff; Complete Time: 18:44 cp 02/26 18:44 Interpretation: Normal except: RBC 3.50; HGB 9.4; HCT 29.5; MCH 26.9; MCHC 31.9; RDW cp 15.8; KERWIN% 74.5; LYM% 14.7. 02/26 17:30 Order name: LFT's; Complete Time: 18:44 cp 02/26 17:30 Order name: Magnesium; Complete Time: 18:44 cp 02/26 17:30 Order name: Troponin HS; Complete Time: 18:44 cp 02/26 17:30 Order name: Lipase; Complete Time: 18:44 cp 02/26 18:46 Order name: Urinalysis w/ reflexes cp 02/26 22:42 Order name: Urinalysis w/ reflexes EDMS 02/26 22:42 Order name: Basic Metabolic Panel EDMS 02/26 22:42 Order name: Basic Metabolic Panel EDMS 02/26 22:42 Order name: CBC with Automated Diff EDMS 02/26 22:42 Order name: CBC with Automated Diff EDMS 02/26 22:42 Order name: Magnesium EDMS 02/26 22:42 Order name: Magnesium EDMS 02/26 22:42 Order name: Phosphorus EDMS 02/26 22:42 Order name: Phosphorus EDMS 02/26 22:42 Order name: T4 Free EDMS 02/26 22:42 Order name: T4 Free EDMS 02/26 22:42 Order name: Thyroid Stimulating Hormone EDMS 02/26 22:42 Order name: Thyroid Stimulating Hormone EDAL 02/27 07:59 Order name: Liver (Hepatic) Function EDMS 02/26 17:30 Order name: XRAY Chest (1 view); Complete Time: 18:44 cp 02/26 18:45 Order name: CT Head Brain wo Cont; Complete Time: 20:13 cp 02/26 20:17 Interpretation: Report reviewed. 02/26 18:46 Order name: CT Abd/Pelvis - Without Contrast; Complete Time: 20:13 cp 02/26 22:42 Order name: Brain Wo Cont EDAL 02/26 22:42 Order name: Brain Wo Cont EDAL 02/26 17:30 Order name: EKG; Complete Time: 17:30 cp 02/26 22:41 Order name: Physical Therapy Consult EDAL 02/26 17:30 Order name: Cardiac monitoring; Complete Time: 20:21 cp 02/26 17:30 Order name: EKG - Nurse/Tech; Complete Time: 20:21 cp 02/26 17:30 Order name: IV Saline Lock; Complete Time: 18:55 cp 02/26 17:30 Order name: Labs collected and sent; Complete Time: 18:55 cp 02/26 17:30 Order name: O2 Per Protocol; Complete Time: 18:55 cp 02/26 17:30 Order name: O2 Sat Monitoring; Complete Time: 18:55 cp EC:24 Rate is 73 beats/min. Rhythm is regular. PA interval is normal. QRS interval is normal. cp QT interval is normal. T waves are Inverted in lead aVR. Interpreted by me. Reviewed by me. Administered Medications: 17:59 Drug: Ondansetron IVP 4 mg IVP once; over 2 minutes Route: IVP; Site: right antecubital;5 19:50 Drug: NS 0.9% IV 500 ml IV at 500 ml/hr continuous Route: IV; Rate: 500 ml/hr; Site: [facility] right antecubital; 22:23 Follow up: IV Status: Completed infusion; IV Intake: 500ml [facility] 22:23 Follow up: Response: No adverse reaction [facility] 21:45 Drug: Magnesium Sulfate IVPB 1 grams IVPB once over 1 hrs Route: IVPB; Infused Over: 1 [facility] hrs; Site: right antecubital; 21:45 Not Given (med not avaliblee): folic acid1 mg IVPB once 21:45 Drug: Aspirin PO 81 mg PO once Route: PO; 12 22:22 Follow up: Response: No adverse reaction [facility] 21:45 Drug: Ativan IVP 0.5 mg IVP once Route: IVP; Site: right antecubital; [facility] 22:22 Follow up: Response: No adverse reaction [facility] Disposition Summary: 02/27/24 21:05 Hospitalization Ordered Notes: Hospitalization Status: Observation cp Provider: Nick Castellon cp Condition: Stable cp Problem: new cp Symptoms: are unchanged cp Bed/Room Type: Standard cp Location: Telemetry/MedSurg (observation)(02/28/24 06:56) bd Room Assignment: [facility](02/28/24 06:56) bd Diagnosis - Altered mental status, unspecified cp Forms: - Medication Reconciliation Form cp - SBAR form cp - Leadership Thank You Letter cp Signatures: Dispatcher [employer] EDMonica Tyler Corey, PA PA cp Lokesh Kent RN RN jb4 Reinaldo Germain RN RN rs5 Lucía Willson RN RN [id number] Corrections: (The following items were deleted from the chart) 23:00 21:05 Telemetry/MedSurg (observation) cp cy 23:00 21:05 cp cy 02/27 06:56 02/26 23:00 [facility] ER HOLD jb4 bd 02/27 06:56 02/26 23:00 ERHOLD- jb4 bd 02/27 20:41 02/26 17:40 Abdomen/GI: Negative for abdominal pain, vomiting, diarrhea, constipation, cp cp 02/27 20:41 02/26 17:40 All other systems are negative, cp cp 02/27 20:42 02/26 17:35 Associated signs and symptoms: Pertinent negatives: abdominal pain, blurred cp vision, chest pain, confusion, dizziness, headache, seizure, cp
[2024-02-27] MEDS ORDERED: LORazepam 2 MG/ML VIAL ONE (21:30)
[2024-02-27] MEDS ORDERED: ASPIRIN 81 MG CHEWABLE TABLET ONE (21:32)
[2024-02-27] MEDS ORDERED: MAGNESIUM SULFATE 1 gm IVPB 1 GM/100 ML BAG IV ONE (21:33)
[2024-02-27] MEDS ORDERED: ONDANSETRON 4 MG/2 ML VIAL IV PRN (22:33)
--- NOTE | 2024-02-27 22:48 | P.HP ---
Certification for Inpatient Patient admitted to: Observation With expected LOS: <2 Midnights Practitioner: I am a practitioner with admitting privileges, knowledge of patient current condition, hospital course, and medical plan of care. Services: Services provided to patient in accordance with Admission requirements found in Title 42 Section 412.3 of the Code of Federal Regulations Patient History Date of Service: 02/27/24 Reason for admission: Abnormal behavior History of Present Illness: 78-year-old with a history of bladder cancer, recently on hospice and receiving methadone for pain control, was recently hospitalized for altered mental status secondary to opiate induced toxicity. Patient was subsequently transferred to [facility] and later discharged to [facility] a few days ago. Patient was returned to the ED due to reported aggressive behavior and confusion. Head CT done in the emergency department demonstrates areas of hypodensity in the right frontal lobe, infarcts not ruled out. Patient noted to be awake and alert, oriented x 2, conversant meaningful, no agitation or aggression. Patient is hospitalized for CVA rule out. Allergies No Known Allergies Allergy (Unverified 02/12/24 20:34) - Past Medical/Surgical History -: Bladder cancer -: Chronic back pain -: Hypertension Psychosocial/ Personal History: Patient stays at [facility] in the independent living section - Social History Alcohol use: No CD- Drugs: No Caffeine use: Yes Review of Systems Other: Patient denies any limb weakness, denies any nausea vomiting or diarrhea. Except as documented, all other systems reviewed and negative. Physical Examination - Physical Exam General: In no apparent distress, Oriented x2 HEENT: Mucous membr. moist/pink, EOMI, Sclerae nonicteric Neck: Supple, JVD not distended Respiratory: Clear to auscultation bilaterally, Normal air movement Cardiovascular: No edema, Regular rate/rhythm, Normal S1 S2 Capillary refill: <2 Seconds Gastrointestinal: Normal bowel sounds, Soft and benign, Non-distended, No tenderness Musculoskeletal: No swelling, No tenderness Integumentary: No rashes, No cyanosis Neurological: Normal speech, Normal strength at 5/5 x4 extr, Cranial nerves 3-12 intact Lymphatics: No axilla or inguinal lymphadenopathy - Studies Laboratory Data (last 24 hrs) 02/27/24 02/27/24 18:08 18:08 WBC 8.10 Hgb 9.4 L Hct 29.5 L Plt Count 263 Sodium 142 Potassium 3.8 BUN 35 H Creatinine 1.44 H Glucose 115 H Magnesium 1.3 L Total Bilirubin 0.4 AST 79 H ALT 119 H Alkaline Phosphatase 94 Lipase 274 H Assessment and Plan - Problems (Diagnosis) (1) Abnormal behavior Current Visit: Yes Status: Acute (2) History of bladder cancer Current Visit: Yes Status: Acute (3) Cancer related pain Current Visit: Yes Status: Acute (4) Hypertension Current Visit: Yes Status: Acute - Plan Abnormal behavior CT head with hypodensity areas in the frontal lobe, acute infarcts not ruled out. Place patient under observation Obtain MRI of the brain Check lipid profile Check TSH and free T4 Neurochecks. Monitor for agitation Seroquel as needed for abnormal behaviors and agitation. History of bladder cancer Cancer related pain Validates, reconcile and continue home analgesics. Avoid methadone for now. Essential hypertension Continue home medication. DVT prophylaxis: Heparin SQ Advanced directive: Full code. - Advance Directives Does patient have a Living Will: Yes Does patient have a Durable POA for Healthcare: No
[2024-02-27] MEDS: NA CHLORIDE 0.9% 1,000 ML IV SCH (23:00)
[2024-02-28] MEDS: HEPARIN 5000 UNIT/ML 1 ML VIAL SQ SCH (01:00)
[2024-02-28 03:08] VITALS: BMI 27.4
[2024-02-28 04:49] LABS: Absolute Basophils 0.1 K/uL (0-0.5); Absolute Eosinophils 0.1 K/uL (0-0.5); Absolute Lymphocytes (CBC) 1.3 K/uL (0.7-4.9); Absolute Monocytes 0.7 K/uL (0.1-1.3); Absolute Neutrophil 4.7 K/uL (1.8-8.0); Basophils % 0.9 % (0-1.3); Eosinophils % 1.3 % (0-4.4); Hematocrit 27.8 % (36.0-45.0); Lymphocytes % 19.6 % (15.3-44.8); MCH 27.2 pg (27.0-35.0); MCHC 32.4 g/dL (32.0-36.0); MCV 83.8 fL (80-100); MPV 9.4 fL (7.6-11.3); Monocytes % 10.1 % (3.3-12.3); Neutrophils % 68.1 % (41.7-73.7); Platelets 235 thou/uL (152-406); RBC Red Blood Cell Count 3.31 M/uL (3.86-4.86); Red Cell Distribution Width 15.2 % (12.1-15.2)
[2024-02-28 05:14] LABS: Anion Gap 9.6 mEq/L (5.0-15.0); Magnesium 1.5 mg/dL (1.6-2.4); Phosphorus 3.3 mg/dL (2.5-4.9); Potassium 3.6 mEq/L (3.5-5.1); Thyroid Stimulating Hormone 2.04 uIU/mL (0.358-3.740)
[2024-02-28 07:47] LABS: ALT/SGPT 101 U/L (13-56); AST/SGOT 54 U/L (15-37); Albumin 2.9 g/dL (3.4-5.0); Albumin/Globulin Ratio 0.9 (1.1-1.8); Alkaline Phosphatase 85 U/L (45-117); Bilirubin Total 0.4 mg/dL (0.2-1.0); Globulin 3.2 g/dL (2.3-3.5); Protein, Total 6.1 g/dL (6.4-8.2)
[2024-02-28 07:59] LABS: Bilirubin Direct < 0.2 mg/dL (0-0.2); Bilirubin Indirect, Calculated 0.2 mg/dL (0.2-0.8)
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
--- NOTE | 2024-02-28 09:28 | RAD REPORT ---
EXAM DESCRIPTION: MRI - Brain Wo Cont - 02/28/2024 9:14 am CLINICAL HISTORY: Abnormal CT COMPARISON: Head Brain Wo Cont dated 02/27/2024 TECHNIQUE: Sagittal T1-weighted images were obtained along with PD/heavily T2-weighted and T2-FLAIR images. Axial DWI and ADC mapping sequences were also obtained along with coronal heavily T2-weighted images were obtained. FINDINGS: No intracranial hemorrhage, mass or acute infarction. There is no edema or shift of midlin e structures. No extra-axial fluid collections. Signal voids are seen as a normal finding in the july r intracranial vessels. Mild chronic small vessel ischemic changes. Mastoid air cells and paranasal sinuses are clear. IMPRESSION: No acute intracranial abnormality. Specifically, no evidence of acute infarct. 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
--- NOTE | 2024-02-28 16:38 | EKG ---
Test Date: 2024-02-27 Test Time: 20:18:11 Clinical Quality Assurance Associate: LES MEASUREMENT RESULTS: Intervals: Rate: 73 NV: 138 QRSD: 98 QT: 426 QTc: 469 [place]: P: 54 NV: 138 QRS: -3 T: 48 INTERPRETIVE STATEMENTS: Normal sinus rhythm Inferior infarct, age undetermined Anterolateral infarct, age undetermined Abnormal ECG Compared to ECG 02/12/2024 12:43:53 No significant changes Electronically Signed On 02-28-24 16:36:23 CDT by Clement Bruno
[2024-02-28] MEDS: QUETIAPINE 25 MG TAB PO PRN (20:12)
[2024-02-28] MEDS: ACETAMINOPHEN 325 MG TABLET PO PRN (20:12)
[2024-02-29 05:27] LABS: Absolute Eosinophils 0.1 K/uL (0-0.5); Absolute Lymphocytes (CBC) 1.5 K/uL (0.7-4.9); Absolute Monocytes 0.5 K/uL (0.1-1.3); Absolute Neutrophil 2.7 K/uL (1.8-8.0); Eosinophils % 1.6 % (0-4.4); Hematocrit 27.8 % (36.0-45.0); Hemoglobin 8.9 g/dL (12.0-15.0); Lymphocytes % 31.3 % (15.3-44.8); MCH 26.8 pg (27.0-35.0); MCHC 32.1 g/dL (32.0-36.0); MCV 83.5 fL (80-100); MPV 9.4 fL (7.6-11.3); Neutrophils % 56.1 % (41.7-73.7); Nucleated Red Blood Cells % 0.2 % (0-0); Platelets 191 thou/uL (152-406); RBC Red Blood Cell Count 3.33 M/uL (3.86-4.86); Red Cell Distribution Width 15.3 % (12.1-15.2)
[2024-02-29 05:50] LABS: Albumin 2.7 g/dL (3.4-5.0); Albumin/Globulin Ratio 0.9 (1.1-1.8); Anion Gap 10.5 mEq/L (5.0-15.0); Bilirubin Total 0.3 mg/dL (0.2-1.0); Globulin 2.9 g/dL (2.3-3.5); Magnesium 1.5 mg/dL (1.6-2.4); Potassium 3.5 mEq/L (3.5-5.1); Protein, Total 5.6 g/dL (6.4-8.2)
[2024-02-29] MEDS: Magnesium Sulfate 2gm IVPB 2 G/50 ML BAG IV ONE (06:32)
[2024-02-29] MEDS: POTASSIUM 25 MEQ EFFERV TAB PO ONE (06:32)
[2024-02-29] MEDS: ACETAMINOPHEN 325 MG TABLET PO PRN (08:52)
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
[2024-02-29 11:09] LABS: Specific Gravity 1.012 (1.005-1.030); Sqamous Epithelial <5 /HPF (None Seen); Urine Bacteria <20 /HPF (<20); Urine Bilirubin NEGATIVE (Negative); Urine Blood Negative (Negative); Urine Clarity Turbid (Clear); Urine Color Light-Yellow (Yellow); Urine Culture Reflex Order NOT NEEDED; Urine Glucose NEGATIVE (Negative); Urine Ketones NEGATIVE (Negative); Urine Microscopic Reflex YN ORDER UMIC; Urine Mucus Slight /HPF (None Seen); Urine Nitrite NEGATIVE (Negative); Urine Protein TRACE (Negative); Urine RBC None Seen /HPF (None Seen); Urine Urobilinogen Normal (Normal); Urine WBC <5 /HPF (<5); Urine pH 5.5 (5.0-7.0)
[2024-03-01] MEDS: DESVENLAFAXINE SUCCINATE 50 MG ER TAB PO SCH (09:00)
[2024-03-01 12:58] LABS: Absolute Basophils 0.1 K/uL (0-0.5); Absolute Eosinophils 0.1 K/uL (0-0.5); Absolute Lymphocytes (CBC) 1.3 K/uL (0.7-4.9); Absolute Monocytes 0.4 K/uL (0.1-1.3); Absolute Neutrophil 3.8 K/uL (1.8-8.0); Basophils % 1.1 % (0-1.3); Eosinophils % 1.2 % (0-4.4); Hematocrit 27.9 % (36.0-45.0); Hemoglobin 8.7 g/dL (12.0-15.0); Lymphocytes % 22.8 % (15.3-44.8); MCH 26.3 pg (27.0-35.0); MCHC 31.2 g/dL (32.0-36.0); MCV 84.2 fL (80-100); MPV 9.3 fL (7.6-11.3); Monocytes % 7.4 % (3.3-12.3); Neutrophils % 67.5 % (41.7-73.7); Platelets 230 thou/uL (152-406); RBC Red Blood Cell Count 3.32 M/uL (3.86-4.86); Red Cell Distribution Width 15.4 % (12.1-15.2)
[2024-03-01 13:18] LABS: Albumin 2.9 g/dL (3.4-5.0); Albumin/Globulin Ratio 0.9 (1.1-1.8); Anion Gap 7.2 mEq/L (5.0-15.0); Bilirubin Total 0.2 mg/dL (0.2-1.0); Globulin 3.1 g/dL (2.3-3.5); Magnesium 1.5 mg/dL (1.6-2.4); Potassium 4.2 mEq/L (3.5-5.1)
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
[2024-03-02] MEDS: lisinopriL 20 MG TAB PO SCH (04:38)
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
[2024-03-03] MEDS: BUPROPION HCL XL 150 MG TAB PO SCH (12:05)
[2024-03-04 05:43] LABS: Hematocrit 27.2 % (36.0-45.0); MCH 27.5 pg (27.0-35.0); MCHC 32.9 g/dL (32.0-36.0); MCV 83.6 fL (80-100); MPV 9.1 fL (7.6-11.3); Platelets 237 thou/uL (152-406); RBC Red Blood Cell Count 3.26 M/uL (3.86-4.86); Red Cell Distribution Width 15.8 % (12.1-15.2)
[2024-03-04 05:51] LABS: Albumin 3.1 g/dL (3.4-5.0); Albumin/Globulin Ratio 0.9 (1.1-1.8); Anion Gap 8.6 mEq/L (5.0-15.0); Bilirubin Total 0.3 mg/dL (0.2-1.0); Globulin 3.3 g/dL (2.3-3.5); Magnesium 1.7 mg/dL (1.6-2.4); Potassium 3.6 mEq/L (3.5-5.1); Protein, Total 6.4 g/dL (6.4-8.2)
[2024-03-04] MEDS: POTASSIUM 25 MEQ EFFERV TAB PO ONE (07:30)
[2024-03-04] MEDS: POTASSIUM CL SA 10 MEQ TAB PO ONE (08:33)
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
--- NOTE | 2024-03-05 15:41 | P.PN ---
Subjective Date of Service: 03/05/24 Chief Complaint: Abnormal behavior Patient has no new complaint. No issues overnight. Physical Examination - Vital Signs Temperature: 97.5 F Blood Pressure: 125/53 Pulse: 81 Respirations: 20 Pulse Ox (%): 96 Assessment And Plan - Current Problems (Diagnosis) (1) Abnormal behavior Current Visit: Yes Status: Acute (2) History of bladder cancer Current Visit: Yes Status: Acute (3) Cancer related pain Current Visit: Yes Status: Acute (4) Hypertension Current Visit: Yes Status: Acute - Plan Physical Exam: GEN: Awake, orientedx3, NAD, pleasant HEENT: Sclera anicteric CV: Regular rate and rhythm, no edema Pulm: clear bilaterally, no rhonchi or rales. ABD: Soft, nontender, nondistended Neuro: moves all extremities spontaneously, no focal motor deficit. Vitals reviewed Diagnosis Abnormal behavior / encephalopathy, suspect secondary to methadone side effect Elevated LFTs, improving JD,resolved History of bladder cancer s/p TURBT (2023) chronic back / cancer pain Hypertension Assessment and plan Abnormal behavior CT head with hypodensity areas in the frontal lobe, acute infarcts not ruled out. Place patient under observation MRI brain (02/27): negative for acute CVA. noted mild chronic small vessel ischemic changes CT abdomen and CXR were both negative for any acute findings. Seroquel PRN Avoid methadone patient revoked hospice. She is DNI/DNR She wants to go to SNF, get better,and then back to [facility] continue PT Continue antidepressants. History of bladder cancer Cancer related pain Avoid methadone for now. Tylenol as needed for pain Continue home medications. Essential hypertension Continue lisinopril. DVT prophylaxis: Heparin SQ Advanced directive: DNR Dispo: SNF - pending approval
[2024-03-05] MEDS: LACTULOSE 20 GM/30 ML UCUP PO PRN (22:23)
[2024-03-06 06:23] LABS: Absolute Lymphocytes (CBC) 1.7 K/uL (0.7-4.9); Absolute Monocytes 0.5 K/uL (0.1-1.3); Absolute Neutrophil 1.7 K/uL (1.8-8.0); Eosinophils % 1.1 % (0-4.4); Hematocrit 26.5 % (36.0-45.0); Hemoglobin 8.6 g/dL (12.0-15.0); Lymphocytes % 42.9 % (15.3-44.8); MCH 27.8 pg (27.0-35.0); MCHC 32.6 g/dL (32.0-36.0); MCV 85.2 fL (80-100); MPV 8.8 fL (7.6-11.3); Monocytes % 11.5 % (3.3-12.3); Neutrophils % 43.5 % (41.7-73.7); Nucleated Red Blood Cells % 0.1 % (0-0); Platelets 199 thou/uL (152-406); RBC Red Blood Cell Count 3.11 M/uL (3.86-4.86); Red Cell Distribution Width 15.6 % (12.1-15.2)
[2024-03-06 06:38] LABS: Anion Gap 8.6 mEq/L (5.0-15.0); Potassium 3.6 mEq/L (3.5-5.1)
[2024-03-06] MEDS: DOCUSATE NA 100 MG CAP PO SCH (08:18)
[2024-03-06 14:42] LABS: INFLUENZA A NAA NEGATIVE (NEGATIVE); RESPIRATORY SYNCYTIAL VIR NAA NEGATIVE (NEGATIVE)
[2024-03-06 14:46] LABS: SARS-COV-2 RT PCR POSITIVE (NEGATIVE)
--- NOTE | 2024-03-06 15:36 | P.PN ---
Subjective Date of Service: 03/06/24 Chief Complaint: Abnormal behavior Patient denies any complaint today. She states that she wants to be discharged as soon as feasible. No issues overnight. No reported agitation or aggressive behavior. Physical Examination - Vital Signs Temperature: 98.1 F Blood Pressure: 135/67 Pulse: 76 Respirations: 16 Pulse Ox (%): 96 Assessment And Plan - Current Problems (Diagnosis) (1) Abnormal behavior Current Visit: Yes Status: Acute (2) History of bladder cancer Current Visit: Yes Status: Acute (3) Cancer related pain Current Visit: Yes Status: Acute (4) Hypertension Current Visit: Yes Status: Acute - Plan Physical Exam: GEN: Awake, oriented x 3, NAD, pleasant HEENT: Sclera anicteric CV: Regular rate and rhythm, no edema Pulm: clear bilaterally, no rhonchi or rales. ABD: Soft, nontender, nondistended Neuro: no focal motor deficit. Vitals reviewed Diagnosis Abnormal behavior / encephalopathy, suspect secondary to methadone side effect Elevated LFTs, improving JD,resolved History of bladder cancer s/p TURBT (2023) chronic back / cancer pain Hypertension Assessment and plan Abnormal behavior CT head with hypodensity areas in the frontal lobe, acute infarcts not ruled out. MRI brain (02/27): negative for acute CVA. noted mild chronic small vessel ischemic changes CT abdomen and CXR were both negative for any acute findings. Continue Seroquel at bedtime as needed. Avoid methadone patient revoked hospice. She is DNI/DNR Patient is planned for SNF placement continue PT Continue antidepressants. History of bladder cancer Cancer related pain Avoid methadone for now. Tylenol as needed for pain Continue home medications. COVID-19 infection Patient is asymptomatic. Essential hypertension Continue lisinopril. DVT prophylaxis: Heparin SQ Advanced directive: DNR Dispo: SNF. Social service is assisting with arrangement for SNF placement.
--- NOTE | 2024-03-06 15:49 | P.DS ---
Admission Date: 02/29/24 Discharge Date: 03/06/24 Disposition: TRANSFER TO SNF - REHAB Discharge Condition: FAIR Reason for Admission: Abnormal behavior - Problems (1) Abnormal behavior Current Visit: Yes Status: Acute (2) History of bladder cancer Current Visit: Yes Status: Acute (3) Cancer related pain Current Visit: Yes Status: Acute (4) Hypertension Current Visit: Yes Status: Acute Brief History of Present Illness: 78-year-old with a history of bladder cancer, recently on hospice and receiving methadone for pain control, was recently hospitalized for altered mental status secondary to opiate induced toxicity. Patient was subsequently transferred to [facility] and later discharged to [facility] a few days ago. Patient was returned to the ED due to reported aggressive behavior and confusion. Head CT done in the emergency department demonstrates areas of hypodensity in the right frontal lobe, infarcts not ruled out. Patient noted to be awake and alert, oriented x 2, conversing meaningful, no agitation or aggression. Patient was hospitalized for CVA rule out. Hospital Course: Patient presented with intermittent confusion, agitation, aggressive behavior. Patient's mentation improved with time and holding her home methadone / opiates. CT abdomen and CXR were both negative for any acute findings. MRI brain was negative for acute CVA, did note mild chronic small vessel ischemic changes. No evidence of ongoing infection. Thyroid studies were normal. Urinalysis was unremarkable. During her hospitalization, patient reported she no longer wished to be on hospice services because she is wanting to get better and requested to go back to [facility]. She was eval by PT/OT who agreed she would benefit from skilled rehab. Patient and family were agreeable to disposition to SNF. Patient is clinically improved, no more agitation or aggressive behavior, she is tolerating diet and participating in therapy. She is deemed stable for discharge. Medications: Stop methadone Avoid opiates Vital Signs/Physical Exam: Temp Pulse Resp BP Pulse Ox 98.1 F 76 16 135/67 96 03/06/24 15:36 03/06/24 15:36 03/06/24 15:36 03/06/24 15:36 03/06/24 15:36 General: Alert, In no apparent distress, Oriented x3 HEENT: Mucous membr. moist/pink Neck: JVD not distended Respiratory: Clear to auscultation bilaterally, Normal air movement Cardiovascular: No edema, Regular rate/rhythm, Normal S1 S2 Gastrointestinal: Normal bowel sounds, Soft and benign, Non-distended Musculoskeletal: No swelling Integumentary: No rashes, No cyanosis Neurological: Normal strength at 5/5 x4 extr Laboratory Data at Discharge: WBC 3.90 thou/uL (4.3-10.9) L 03/06/24 06:09 Hgb 8.6 g/dL (12.0-15.0) L 03/06/24 06:09 Hct 26.5 % (36.0-45.0) L 03/06/24 06:09 Plt Count 199 thou/uL (152-406) 03/06/24 06:09 Sodium 140 mEq/L (136-145) 03/06/24 06:09 Potassium 3.6 mEq/L (3.5-5.1) 03/06/24 06:09 BUN 25 mg/dL (7-18) H 03/06/24 06:09 Creatinine 1.36 mg/dL (0.55-1.02) H 03/06/24 06:09 Glucose 125 mg/dL (74-106) H 03/06/24 06:09 Phosphorus 3.3 mg/dL (2.5-4.9) 02/28/24 04:40 Magnesium 1.7 mg/dL (1.6-2.4) 03/04/24 05:00 Total Bilirubin 0.3 mg/dL (0.2-1.0) 03/04/24 05:00 AST 28 U/L (15-37) 03/04/24 05:00 ALT 57 U/L (13-56) H 03/04/24 05:00 Alkaline Phosphatase 100 U/L (45-117) 03/04/24 05:00 Lipase 274 U/L (13-75) H 02/27/24 18:08 Home Medications: Bupropion *Xl* [Wellbutrin XL*] 150 mg PO DAILY 03/02/24 Trazodone HCl [Desyrel] 100 mg PO BEDTIME 03/02/24 Docusate [Colace Cap*] 100 mg PO BID #0 cap 03/06/24 lisinopriL [Prinivil*] 20 mg PO DAILY@0500 tab 03/06/24 Physician Discharge Instructions: Physician discharge instructions: Patient presented with intermittent confusion, agitation, aggressive behavior. Unclear etiology, however given presentation of symptoms, suspicion would be most consistent with methadone / opiate side effect. Patient's mentation improved with time and holding her home methadone / opiates. CT abdomen and CXR were both negative for any acute findings. MRI brain was negative for acute CVA, did note mild chronic small vessel ischemic changes. No evidence of ongoing infection. Thyroid studies were normal. Urinalysis was unremarkable. During her hospitalization, patient reported she no longer wished to be on hospice services because she is wanting to get better and requested to go back to [facility]. She was eval by PT/OT who agreed she would benefit from SNF for continued monitoring, adjustment of blood pressure medications, daily physical therapy to which patient and family were agreeable to. Patient was feeling better, mentation improved ~baseline, and deemed stable for discharge. Medications: Stop methadone Avoid opiates Follow up: PCP 3-5 days Please call to schedule / confirm appointments Diet: AHA Activity: Fall precautions Followup: NONE,NONE [Primary Care Provider] - (Within 2 to 4 weeks) Time spent managing pt's care (in minutes): 38
[2024-03-07 12:41] VITALS: BP 151/75; TEMP 97.9
[2024-03-07 12:55] VITALS: O2SAT 96
== END 2024-03-07 12:03 | DRG 91 ==
LOC: ER 17:19 → ERHOLD 22:30 → 2ND 02-28 07:25 → OBSVTOIN 02-29 09:05
PROVIDERS: ADMIT Internal Medicine; ATTEND Internal Medicine
DX: G92.8 Other toxic encephalopathy (principal); U07.1 COVID-19; N17.9 Acute kidney failure, unspecified; T40.3X5A Adverse effect of methadone, initial encounter; I10 Essential (primary) hypertension; M54.9 Dorsalgia, unspecified; G89.3 Neoplasm related pain (acute) (chronic); R79.89 Other specified abnormal findings of blood chemistry; Z66 Do not resuscitate; Z85.51 Personal history of malignant neoplasm of bladder
CPT/HCPCS: 0241U; 36415; 70450; 70551; 71045; 74176; 80048; 80053; 80076; 81001; 83690; 83735; 84100; 84439; 84443; 84484; 85025; 85027; 93005; 94760; 96361; 96374; 96375; 97116; 97161; 97163; 97530; 99285; G0378; J1644; J2405; J3475; J7030; J7040